=== PATIENT | female | born 1945 | race Caucasian/White ===

== ENCOUNTER 2020-01-30 13:46 | Outpatient (CLI) | payer MEDICARE, OTHER, SELFPAY ==
--- NOTE | ~2020-01-30 | XR_ITS ---
EXAMINATION: XR chest 2V DATE: 01/30/2020 15:13 INDICATION: Hypertension. Preop. TECHNIQUE: Frontal and lateral views of the chest were obtained. COMPARISON: Chest single view 12/22/2013 FINDINGS: There is mild scarring at the lung apices. No pleural effusion or pneumothorax. The heart s ize is normal. IMPRESSION: 1. Mild scarring at the lung apices. Reviewed, dictated and finalized at location B.
--- NOTE | 2020-01-30 14:46 | ECG_ITS ---
Measurements Intervals [place] Rate: 60 P: 52 W[place]: 180 QRS: -14 QRSD: 89 T: 49 QT: 426 QTc: 428 Interpretive Statements SINUS RHYTHM DELAYED PRECORDIAL R/S TRANSITION VOLTAGE CRITERIA FOR LVH BASELINE ARTIFACT- I, III, AVR, AVL, AVF BORDERLINE ECG Electronically Signed On 01-31-2020 8:40:35 CDT by Saud Maciel D.O.
[2020-01-30 15:12] LABS: Basophils Percent Auto 0.4 % (0.2-1.2); Eosinophils Percent Auto 0.4 % (0-4.4); Hematocrit 42.9 % (37.0-47.0); Hemoglobin 14.3 g/dL (12.0-15.0); Immature Granulocyte Absolute 0.01 K/mm3 (0.00-0.031); Immature Granulocyte Percent A 0.1 % (0-0.5); Lymphocytes Absolute Auto 2.02 K/mm3 (0.9-3.2); Lymphocytes Percent Auto 25.4 % (18.3-44.2); Mean Corpuscular HGB Conc 33.3 g/dl (32-36); Mean Corpuscular Hemoglobin 29.5 pg (26-34); Mean Corpuscular Volume 88.5 fl (80-100); Mean Platelet Volume 9.6 fl (7.4-10.4); Monocytes Absolute Auto 0.6 K/mm3 (0.1-0.6); Monocytes Percent Auto 7.2 % (2.6-8.5); Neutrophils Absolute Auto 5.3 K/mm3 (1.3-6.7); Neutrophils Percent Auto 66.5 % (45.5-73.1); Platelet Count Result 252 k/mm3 (150-375); Red Blood Count 4.85 M/mm3 (4.2-5.4); Red Cell Distribution Width 13.2 % (11.5-14.5)
[2020-01-30 15:21] LABS: Hemoglobin A1C 5.6 % (<5.7)
[2020-01-30 15:22] LABS: Albumin Level 4.7 g/dL (3.5-5.1); Anion Gap 12 mmol/L (8-16); Blood Urea Nitrogen 21 mg/dL (7-17); Calcium 9.5 mg/dL (8.4-10.2); Carbon Dioxide 26 mmol/L (22-30); Chloride 99 mmol/L (98-107); Estimated Glomerular Filt Rate 44; Glucose 106 mg/dL (65-105); Potassium 3.9 mmol/L (3.4-5.0); Sodium 137 mmol/L (137-145)
[2020-01-30 15:26] LABS: Urine Cotinine NEGATIVE
== END 2020-01-30 13:47 | disposition home or self-care (01) ==
LOC: ANHSURGERY 13:49
PROVIDERS: PCP Internal Medicine; Visit Provider Orthopaedic Surgery
DX: M16.11 Unilateral primary osteoarthritis, right hip (principal); R91.8 Other nonspecific abnormal finding of lung field
CPT/HCPCS: 36415; 71046; 80048; 80307; 82040; 83036; 85025; 87070; 87077; 87186; 93005

== ENCOUNTER 2020-02-07 07:59 | Outpatient (CLI) | payer MEDICARE, SELFPAY ==
[2020-02-07 08:39] LABS: Creatinine Urine 141.46 mg/dL (40-278); Total Protein Urine Random 17.1 mg/dL (0.0-11.9)
[2020-02-07 09:34] LABS: Albumin Level 3.7 g/dL (3.4-5.0); Anion Gap 12 mmol/L (8-16); Blood Urea Nitrogen 21 mg/dL (7-18); Calcium 8.6 mg/dL (8.5-10.1); Carbon Dioxide 26 mmol/L (21-32); Chloride 102 mmol/L (98-108); Estimated Glomerular Filt Rate 44; Glucose 178 mg/dL (70-99); Osmolality Calculated 297 mOsm/kg (285-295); Phosphorus 3.3 mg/dL (2.6-4.7); Potassium 3.7 mmol/L (3.5-5.1); Sodium 140 mmol/L (136-145)
[2020-02-07 09:47] LABS: Eosinophil Urine 0 % (0-0)
== END 2020-02-07 08:00 | disposition home or self-care (01) ==
LOC: CHSLAB 08:01
PROVIDERS: PCP Internal Medicine; Visit Provider Internal Medicine Nephrology
DX: R94.4 Abnormal results of kidney function studies (principal)
CPT/HCPCS: 36415; 80069; 82436; 82570; 84156; 85999

== ENCOUNTER → 2020-02-09 13:19 | Outpatient (CLI) | payer MEDICARE, OTHER, SELFPAY ==
--- NOTE | ~2020-02-09 | US_ITS ---
EXAMINATION: US renal BI DATE: 02/09/2020 13:36 INDICATION: Nonspecific abnormal results of function study of kidney. TECHNIQUE: Multiple ultrasound grayscale images of the kidneys were obtained. COMPARISON: Lumbar spine MRI 02/23/2019 FINDINGS: The right kidney measures 9.2 x 4.2 x 5.2 cm. The left kidney measures 12.7 x 4.7 x 6.1 cm. The kidne ys demonstrate normal parenchymal echogenicity. There is a 1.8 cm peripelvic cyst in left kidney. The re is no hydronephrosis. The bladder is normal. IMPRESSION: 1. Normal kidney sizes. No hydronephrosis. Reviewed, dictated and finalized at location A.
== END ==
PROVIDERS: Visit Provider Internal Medicine Nephrology
DX: R94.4 Abnormal results of kidney function studies (principal)
CPT/HCPCS: 76775

== ENCOUNTER 2020-02-10 07:55 | Outpatient (CLI) | payer MEDICARE, OTHER, SELFPAY ==
--- NOTE | ~2020-02-10 | NM_ITS ---
EXAMINATION: NM wilver stress w perfusion DATE: 02/10/2020 10:48 INDICATION: Coronary atherosclerosis. TECHNIQUE: Rest images were obtained following intravenous administration of 10.9 mCi Tc99m tetrofosm in (Myoview). The patient was infused intravenously with Lexiscan (regadenoson). Then, 32.3 mCi Tc99m tetrofosmin (Myoview) was administered intravenously, and stress images were obtained. Data was shereen nstructed into short axis and horizontal and vertical long axis SPECT images. Gated SPECT images were also obtained. COMPARISON: None. FINDINGS: There is no definite reversible or fixed perfusion abnormality to suggest ischemia or infar ction. There is no segmental wall motion abnormality. Left ventricular ejection fraction measures > 70%. IMPRESSION: 1. No definite ischemia or infarct. 2. Normal left ventricular ejection fraction measuring >70%. Reviewed, dictated and finalized at location A.
--- NOTE | 2020-02-10 08:35 | EST_ITS ---
Patient Info Name: Susi Easley Age: 74 years : 1945 Gender: Female Ht: 63 in Wt: 195 lbs BSA: 2.02 m2 Exam Date: 02/10/2020 9:29 AM Exam Location: [facility] Stress Patient Status: Outpatient Admit Date: 02/10/2020 Staff Ordering Physician: Ben Cohen MD Attending Provider: Ben Cohen MD Exercise Technologist: Melva Estrada RDCS Exercise Physician: Saud Maciel DO Exam Type: CA stress wilver w NM Study Info Indications I25.10 - Atherosclerotic heart disease of [place] coronary artery without angina pectoris Z01.810 - Encounter for preprocedural cardiovascular examination A regadenoson stress test was performed. Summary 1. 1. Negative lexiscan stress test for ischemic ST changes by ECG criteria. 2. 2. Stable hemodynamics throughout the test. 3. 3. Nuclear scan to follow and will be reported separately. Please correlate with it. 4. 4. Patient informed of the above results. Protocol: Lexiscan Stress ECG Details Stage: REST Duration (min): 8 min : 7 sec HR (bpm): 66 SBP (mmHg): 142 DBP (mmHg): 78 Stage: REST Duration (min): 13 min : 32 sec HR (bpm): 65 SBP (mmHg): 142 DBP (mmHg): 78 Stage: STAGE 1 Duration (min): 1 min : 0 sec HR (bpm): 73 SBP (mmHg): 138 DBP (mmHg): 68 Stage: RECOVERY Duration (min): 1 min : 0 sec HR (bpm): 83 SBP (mmHg): 119 DBP (mmHg): 64 Stage: RECOVERY Duration (min): 2 min : 0 sec HR (bpm): 83 SBP (mmHg): 119 DBP (mmHg): 64 Stage: RECOVERY Duration (min): 3 min : 0 sec HR (bpm): 79 SBP (mmHg): 119 DBP (mmHg): 64 Stage: RECOVERY Duration (min): 4 min : 0 sec HR (bpm): 81 SBP (mmHg): 119 DBP (mmHg): 64 Stage: RECOVERY Duration (min): 5 min : 0 sec HR (bpm): 84 SBP (mmHg): 114 DBP (mmHg): 65 Stage: RECOVERY Duration (min): 6 min : 0 sec HR (bpm): 81 SBP (mmHg): 114 DBP (mmHg): 65 Stage: RECOVERY Duration (min): 6 min : 40 sec HR (bpm): 79 SBP (mmHg): 131 DBP (mmHg): 68 Rest HR: 65 bpm Peak HR: 85 bpm Rest Sys BP: 142 mmHg Peak Sys BP: 138 mmHg Max Pred HR: 145 bpm % Max Pred HR: 59 % Target HR: 123 bpm Max RPP: 11,730 bpm*mmHg Termination Reason: Completed protocol Cardiac Symptoms: Shortness of breath Total Time: 1 min : 0 sec Rest Bender BP: 78 mmHg Peak Bender BP: 68 mmHg Total Dose: 0.4 mg Resting ECG Sinus rhythm. Stress ECG No ST changes. Arrhythmias None. Report Signatures
== END 2020-02-10 07:56 | disposition home or self-care (01) ==
PROVIDERS: PCP Internal Medicine; Visit Provider Internal Medicine
DX: I25.10 Atherosclerotic heart disease of native coronary artery without angina pectoris (principal); Z01.810 Encounter for preprocedural cardiovascular examination
CPT/HCPCS: 78452; 93017; A9502; J2785

== ENCOUNTER 2020-02-13 00:58 | Outpatient (CLI) | payer MEDICARE, OTHER, SELFPAY ==
[2020-02-13 19:34] LABS: SARS-CoV-2 RNA PCR Negative
== END 2020-02-13 00:59 | disposition home or self-care (01) ==
LOC: ANHCOVIDDT 00:58
PROVIDERS: PCP Internal Medicine; Visit Provider Orthopaedic Surgery
DX: Z01.812 Encounter for preprocedural laboratory examination (principal); Z20.828 Contact with and (suspected) exposure to other viral communicable diseases
CPT/HCPCS: 87635; C9803; U0003

== ENCOUNTER 2020-02-15 02:14 | Day surgery (SDC) | payer MEDICARE, OTHER, SELFPAY ==
[2020-01-30 14:32] VITALS: BMI 35.2
[2020-01-30 14:48] VITALS: BP 134/71; PULSE 68; RESP 16; TEMP 36.6; O2SAT 98
--- NOTE | 2020-02-10 12:42 | PC.NURSE ---
PT STATES NO CHANGE IN HEALTH HX SINCE LAST INTERVIEW ON 01/30/20
--- NOTE | 2020-02-13 14:25 | PM.IMHP ---
H&P: HPI History of Present Illness Date/Time: 02/13/20 14:25 <JEANNINE Yang - Last Filed: 02/13/20 14:45> Chief complaint: severe OA right hip <JEANNINE Yang - Last Filed: 02/13/20 14:45> Narrative: Susi Easley is a 74 year old female , presents today for our anterior right total hip arthroplasty. She has been having pain and progressively worsening in this right hip over the course of last year point she is at a point where she has severe arthritis in the hip with mild flattening of the femoral head. She has recently been taken off anti-inflammatories due to kidney issues and therefore her pain is even worse. She is at a point now where she is using a walker full-time is still experiencing rather severe pain in the right groin and anterior lateral hip. She feels she has reached a point straight proceed with total hip arthroplasty with a continued nonsurgical treatment. <JEANNINE Yang - Last Filed: 02/13/20 14:45> Review of Systems ENT: Reports system reviewed and no additional complaints, except as documented <JEANNINE Yang - Last Filed: 02/13/20 14:45> Cardiovascular: Cardiovascular: Reports no additional cardiovascular complaints <JEANNINE Yang - Last Filed: 02/13/20 14:45> Respiratory: Respiratory: Reports no additional respiratory complaints <JEANNINE Yang - Last Filed: 02/13/20 14:45> [facility] Past Medical History Medical History: Medical History Hypertension Hypothyroidism, unspecified Metabolic syndrome Mixed hyperlipidemia <JEANNINE Yang - Last Filed: 02/13/20 14:45> Family History Family History: Family History Mother Hypertension Carcinoma of colon Other Family history of arthritis <JEANNINE Yang - Last Filed: 02/13/20 14:45> Social History Social History: Social History Smoking status: Never smoker Second hand tobacco smoke exposure: No Additional smoking assessment comments: DENIES ANY FORM OF TOBACCO USE Alcohol intake: current Drinks per week: 1 Alcohol use details: WINE Substance use: never Living arrangements: with family Spiritual care concerns: No <JEANNINE Yang - Last Filed: 02/13/20 14:45> Meds Home Medications and Allergies Home medications: Home Medications Medication Instructions Recorded Confirmed Type hydrochlorothiazide 25 mg tablet 25 mg PO DAILY 90 Days #90 tablet 08/01/19 02/15/20 Rx meloxicam 7.5 mg tablet 7.5 mg PO DAILY 90 Days #90 tablet 08/01/19 02/15/20 Rx metoprolol tartrate 100 mg tablet 100 mg PO DAILY 90 Days #90 tablet 08/01/19 02/15/20 Rx pregabalin 75 mg capsule 75 mg PO BID 90 Days #180 cap 08/01/19 02/15/20 Rx rosuvastatin 20 mg tablet 20 mg PO DAILY #90 tablet 09/07/19 02/15/20 Rx levothyroxine 75 mcg tablet 75 mcg PO DAILY 90 Days #90 tablet 10/24/19 02/15/20 Rx aspirin [Adult Low Dose Aspirin] 81 mg PO DAILY 01/30/20 02/15/20 History zolpidem 10 mg PO HS PRN 01/30/20 02/15/20 History <JEANNINE Yang - Last Filed: 02/13/20 14:45> Allergies/Adverse reactions: Allergies Allergy/AdvReac Type Severity Reaction Status Date / Time Penicillins Allergy Intermediate Swelling Verified 02/15/20 11:08 albuterol Allergy Mild palpatation Verified 02/15/20 11:08 s <JEANNINE Yang - Last Filed: 02/13/20 14:45> Exam Narrative: Exam Narrative: 74-year-old female very alert pleasant no distress. She walks with a [id number] limp relative to pain in the right hip. She is walking with a walker. She is 5 ft 3 and 200 lb. She has severe pain with extension of the hip on the right which is felt in the groin. Flexion right hip is 9?, she has no rotation of the hip. Any attempted rotation causes her severe groin pain, she has moderate groin josh
[2020-02-15] VITALS (10 sets, daily range): BP systolic 104–140; BP diastolic 56–92; PULSE 59–90; RESP 10–20; TEMP 35.7–36.7; O2SAT 20–100
--- NOTE | ~2020-02-15 | XR_ITS ---
EXAMINATION: XR surgery orthopedic DATE: 02/15/2020 15:49 INDICATION: Right hip arthroplasty TECHNIQUE: Single fluoroscopic AP view of the right hip. 66 seconds of fluoroscopy. FINDINGS: There is a right total hip arthroplasty in expected position. Subcutaneous gas with soft t issue swelling are consistent with recent surgery. IMPRESSION: 1. Recent right total hip arthroplasty. Reviewed, dictated and finalized at location A.
--- NOTE | ~2020-02-15 | XR_ITS ---
EXAMINATION: XR hip RT 1V w AP pelvis DATE: 02/15/2020 16:16 INDICATION: Right total hip arthroplasty TECHNIQUE: 2 views right hip FINDINGS: There is a right total hip arthroplasty in expected position. Subcutaneous gas with soft t issue swelling are consistent with recent surgery. IMPRESSION: 1. Recent right total hip arthroplasty. Reviewed, dictated and finalized at location A.
[2020-02-15] MEDS: LACTATED RINGERS 1,000 ML 30 ML IV CONT ×2 (10:30→16:16)
[2020-02-15] MEDS: KETOROLAC 15 MG/ML VIAL (*BKC) IV PUSH (10:40)
[2020-02-15] MEDS: ACETAMINOPHEN 500 MG TABLET 1000 MG PO ×2 (10:40→18:12)
[2020-02-15] MEDS: TRANEXAMIC ACID 1,000MG/ISO100 1,000 MG/100 ML BAG 200 MG IVPB (11:18)
--- NOTE | 2020-02-15 11:36 | WPDANESEPPF ---
Anes - Initial Pre Proc Eval Procedure: Operation Date: 02/15/20 12:00 Proposed Procedures p Right Total Hip Arthroplasty, Anterior Approach - Eliud Adams MD Date/Time: 02/15/20 11:36 Surgeon: Eliud Adams MD Pre Op Diagnosis: severe OA right hip Patient Data Age: 74 Gender: F Height: 5 ft 3 in Weight: 82 kg Last Vital Signs Temp 36.7 C 02/15/20 10:26 Pulse 90 02/15/20 10:26 Resp 20 02/15/20 10:26 BP 104/69 02/15/20 10:26 Pulse Ox 100 02/15/20 10:26 Allergies Allergy/AdvReac Type Severity Reaction Status Date / Time Penicillins Allergy Intermediate Swelling Verified 02/15/20 11:08 albuterol Allergy Mild palpatation Verified 02/15/20 11:08 s Home Medications Medication Instructions Recorded Confirmed Type hydrochlorothiazide 25 mg tablet 25 mg PO DAILY 90 Days #90 tablet 08/01/19 02/15/20 Rx meloxicam 7.5 mg tablet 7.5 mg PO DAILY 90 Days #90 tablet 08/01/19 02/15/20 Rx metoprolol tartrate 100 mg tablet 100 mg PO DAILY 90 Days #90 tablet 08/01/19 02/15/20 Rx pregabalin 75 mg capsule 75 mg PO BID 90 Days #180 cap 08/01/19 02/15/20 Rx rosuvastatin 20 mg tablet 20 mg PO DAILY #90 tablet 09/07/19 02/15/20 Rx levothyroxine 75 mcg tablet 75 mcg PO DAILY 90 Days #90 tablet 10/24/19 02/15/20 Rx aspirin [Adult Low Dose Aspirin] 81 mg PO DAILY 01/30/20 02/15/20 History zolpidem 10 mg PO HS PRN 01/30/20 02/15/20 History Patient hx anesthesia problems: none Family hx anesthesia problems: none PMFSH Past Medical History Medical History Hypertension Hypothyroidism, unspecified Metabolic syndrome Mixed hyperlipidemia Family History Family History Mother Hypertension Carcinoma of colon Other Family history of arthritis Social History Social History Smoking status: Never smoker Second hand tobacco smoke exposure: No Additional smoking assessment comments: DENIES ANY FORM OF TOBACCO USE Alcohol intake: current Drinks per week: 1 Alcohol use details: WINE Substance use: never Living arrangements: with family Spiritual care concerns: No Anes - Eval Final PreProcedure Day of Procedure 02/15/20 11:36 Patient weight: obese Heart: regular rate and rhythm Lungs: clear to auscultation Airway: Mallampati scale class II Neurological: alert and oriented Last oral intake: >/= 8 hours ASA classification: III Emergent: no Anesthetic plan: proceed Anesthesia type and monitoring: general ETT and standard monitoring Informed Consent: The patient's anesthetic plan and its attendant risks and benefits were discussed with the patient/family/POA. Questions were solicited and answers provided to the satisfaction of the patient/family/POA.
--- NOTE | 2020-02-15 11:52 | WPDHPUPDATE1 ---
History and Physical Update Update Date/Time: 02/15/20 11:52 History and Physical has been reviewed, including an updated exam of the patient. There are NO changes in the patient's condition. Risks, benefits, and alternatives have been discussed and questions answered. Patient agrees to proceed with procedure. Patient had blood work Thursday and has been cleared by dr Langley to proceed from renal standpoint
[2020-02-15] MEDS: ceFAZolin 2 GM/D5W 50 ML 2 GM/50 ML BAG IVPB (12:09)
[2020-02-15] MEDS: ceFAZolin SODIUM 1 GM VIAL 3 GM IRRIGATION (12:50)
[2020-02-15] MEDS: ceFAZolin SODIUM 1 GM VIAL IV PUSH (15:49)
[2020-02-15] MEDS: TRANEXAMIC ACID 1,000 MG/10 ML AMPUL 1000 MG IV PUSH (15:50)
--- NOTE | 2020-02-15 15:54 | P.OP_ITS ---
Procedure Note - Detailed Date of procedure: 02/15/20 Pre-op diagnosis: severe OA right hip Severe osteoarthritis right hip Post-op diagnosis: same Procedure performed: direct anterior approach right total hip arthroplasty Implants: Depue Actis stem and cup Anesthesia: GETA Surgeon: Eliud Adams MD Water Gas Operator: lorena Estimated blood loss (mL): 450 Urine output (mL): 200 Drains: Yes Packing: No Pathology: none sent Complications: No immediate complications Condition: stable Disposition: PACU Findings: 200 alan saver returned.
[2020-02-15] MEDS: SENNA/DOCUSATE SODIUM TABLET 2 TAB PO (18:12)
[2020-02-15] MEDS: PREGABALIN 75 MG CAPSULE PO (18:12)
[2020-02-16] VITALS: BP 116/50; PULSE 96; RESP 20; TEMP 36.4; O2SAT 66
[2020-02-16] MEDS: ACETAMINOPHEN 500 MG TABLET 1000 MG PO ×3 (00:10→11:17)
[2020-02-16 04:43] VITALS: BP 115/65; PULSE 67; RESP 18; TEMP 37.1; O2SAT 96
[2020-02-16] MEDS: LEVOTHYROXINE SODIUM 75 MCG TABLET PO (05:50)
--- NOTE | 2020-02-16 06:00 | PC.NURSE ---
Per orders hemovac drain removed at this time. In tact. Patient tolerated well.
[2020-02-16 06:01] LABS: Basophils Percent Auto 0.1 % (0.2-1.2); Hematocrit 30.2 % (37.0-47.0); Hemoglobin 10.7 g/dL (12.0-15.0); Immature Granulocyte Absolute 0.11 K/mm3 (0.00-0.031); Immature Granulocyte Percent A 0.6 % (0-0.5); Lymphocytes Absolute Auto 1.24 K/mm3 (0.9-3.2); Lymphocytes Percent Auto 6.6 % (18.3-44.2); Mean Corpuscular HGB Conc 35.4 g/dl (32-36); Mean Corpuscular Hemoglobin 30.3 pg (26-34); Mean Corpuscular Volume 85.6 fl (80-100); Mean Platelet Volume 10.1 fl (7.4-10.4); Monocytes Percent Auto 5.5 % (2.6-8.5); Neutrophils Absolute Auto 16.3 K/mm3 (1.3-6.7); Neutrophils Percent Auto 87.2 % (45.5-73.1); Platelet Count Result 221 k/mm3 (150-375); Red Blood Count 3.53 M/mm3 (4.2-5.4); Red Cell Distribution Width 12.7 % (11.5-14.5); White Blood Count 18.7 K/mm3 (4.5-10.0)
[2020-02-16 06:12] LABS: Anion Gap 10 mmol/L (8-16); Blood Urea Nitrogen 22 mg/dL (7-17); Calcium 8.5 mg/dL (8.4-10.2); Carbon Dioxide 28 mmol/L (22-30); Chloride 91 mmol/L (98-107); Estimated CRCL calculation 44 ml/min; Estimated Glomerular Filt Rate 54; Glucose 121 mg/dL (65-105); Potassium 3.1 mmol/L (3.4-5.0); Sodium 129 mmol/L (137-145)
--- NOTE | 2020-02-16 07:07 | PM.PNORT ---
Progress Note: A&P Additional Plan POD 1 alert avss labs-noted, Cr-1.00 pt was up to chair last night, overall pain is min, wd-dry, drain is out. pt feeling good,plan to have her work with PT today then send home after abx are finished Subjective Subjective Date/Time Seen: 02/16/20 07:07 Objective Data Vital Signs Vital Signs: Vital Signs - 24 hr 02/15/20 10:26 02/15/20 16:16 02/15/20 16:30 Temperature 36.7 C 36.4 C L Pulse Rate 90 78 66 Respiratory Rate 20 10 L 16 Blood Pressure 104/69 116/92 H 135/70 Pulse Oximetry 100 100 100 02/15/20 16:45 02/15/20 17:00 02/15/20 17:20 Temperature 35.8 C L Pulse Rate 62 60 59 L Respiratory Rate 13 14 16 Blood Pressure 132/56 L 127/56 L 140/75 Pulse Oximetry 100 100 100 02/15/20 17:35 02/15/20 18:05 02/15/20 19:05 Temperature 35.9 C L 36.1 C L 35.8 C L Pulse Rate 60 64 84 Respiratory Rate 18 18 18 Blood Pressure 135/62 129/73 112/70 Pulse Oximetry 98 95 20 L 02/15/20 20:00 02/16/20 00:00 02/16/20 04:43 Temperature 35.7 C L 36.4 C L 37.1 C Pulse Rate 83 96 67 Respiratory Rate 20 20 18 Blood Pressure 120/65 116/50 L 115/65 Pulse Oximetry 100 66 L 96 Intake/Output Intake/Output: Intake & Output 02/13/20 02/14/20 02/15/20 02/16/20 23:59 23:59 23:59 23:59 Intake Total 690 700 Output Total 200 Balance 490 700 Meds/Results Medications: Active Medications Generic Name Dose Route Start Last Admin Trade Name Moisesq PRN Reason Stop Dose Admin Acetaminophen 1,000 mg 02/15/20 18:00 02/16/20 05:50 Tylenol Tablet PO 1,000 mg Q6HR JUVE Administration Apixaban 2.5 mg 02/16/20 09:00 Eliquis PO 03/21/20 21:01 Q12HR JUVE Vancomycin HCl 1,000 mg in 250 mls @ 250 mls/hr 02/15/20 23:00 02/16/20 00:06 Vancomycin 1,000 Mg/D5w 250 Ml IVPB 02/16/20 11:59 Infused Q12H JUVE Infusion Cefazolin Sodium 1 gm in 50 mls @ 100 mls/hr 02/15/20 20:00 02/16/20 05:12 Ancef 1 Gm/D5w 50 Ml Pm IVPB 02/16/20 12:29 Infused Q8H JUVE Infusion Levothyroxine Sodium 75 mcg 02/16/20 06:30 02/16/20 05:50 Synthroid PO 75 mcg DAILY@0630 JUVE Administration Magnesium Hydroxide 30 ml 02/15/20 16:13 Milk Of Magnesia PO BID PRN Constipation Metoprolol Tartrate 100 mg 02/16/20 09:00 Lopressor PO DAILY JUVE Naloxone HCl 0.1 mg 02/15/20 16:13 Narcan IV PUSH Q2M PRN Opiate Reversal Ondansetron HCl 4 mg 02/15/20 11:37 Zofran Inj IV PUSH ONCE PRN Nausea Oxycodone HCl 5 mg 02/15/20 16:13 Roxicodone Ir Tablet PO Q4H PRN Pain Rated 7-10 Oxycodone HCl 5 mg 02/15/20 21:00 02/16/20 04:40 Roxicodone Ir Tablet PO 5 mg Q4HR [facility] Administration Polyethylene Glycol 17 gm 02/16/20 09:00 Miralax PO QAM JUVE Pregabalin 75 mg 02/15/20 17:11 02/15/20 18:12 Lyrica PO 75 mg BID JUVE Administration Rosuvastatin Calcium 20 mg 02/16/20 09:00 Crestor PO DAILY JUVE Senna/Docusate Sodium 2 tab 02/15/20 17:00 02/15/20 18:12 Senokot S Tablet PO 2 tab BID JUVE Administration Radiology Results: ITS Impressions Intraoperative X-Ray 02/15/20 15:53 IMPRESSION: 1. Recent right total hip arthroplasty. Hip/Pelvis X-Ray 02/15/20 16:18 IMPRESSION: 1. Recent right total hip arthroplasty. Labs Labs: Laboratory Results - last 24 hr 02/15/20 02/15/20 02/16/20 10:21 17:23 05:44 WBC 18.7 H RBC 3.53 L Hgb 12.0 10.7 L Hct 35.0 L 30.2 L MCV 85.6 MCH 30.3 MCHC 35.4 RDW 12.7 Plt Count 221 MPV 10.1 Immature Gran % (Auto) 0.6 H Neut % (Auto) 87.2 H Lymph % (Auto) 6.6 L [place] % (Auto) 5.5 Eos % (Auto) 0.0 Baso % (Auto) 0.1 L Lymph # (Auto) 1.24 [place] # (Auto) 1.0 H Eos # (Auto) 0.0 Baso # (Auto) 0.0 Abs Immat Gran (auto) 0.11 H Absolute Neuts (auto) 16.3 H Absolute Nucleated RBC 0.0 Nucleated RBC % 0.0 Sodium Potassium
--- NOTE | 2020-02-16 07:08 | PM.DS ---
DS: Admitting Diagnosis Admitting Diagnosis Admitting Diagnosis: severe OA right hip DS: Summary Time Spent with Patient Time attestation: Patient is a 74-year-old female who underwent right total hip arthroplasty about a year on 02-14. Underwent procedure without any complications. Postoperatively she has been afebrile and vital signs have been stable. She is weight-bearing as tolerated with a walker for the 1st month. Incision is dry, neurovascularly she is intact. postop day 1 hemoglobin was 10.7, creatinine had normalized to 1.00. Her pain is well control with scheduled Tylenol well oxycodone for pain. She will start a 5 week course of Eliquis. Therapy will work with the patient today make sure that she is stable and we will plan to discharge home on 02/14. Home regular diet. Patient is advised to keep leg elevated and swelling to the leg. She may shower. Patient was advised the questions or concerns She should call the office, otherwise we will see her at her follow-up appointments. DS: Data Data Completed and Pending Labs on day of discharge: Labs from last 24 hours 02/16/20 02/16/20 02/15/20 05:44 05:44 17:23 WBC 18.7 H RBC 3.53 L Hgb 10.7 L 12.0 Hct 30.2 L 35.0 L MCV 85.6 MCH 30.3 MCHC 35.4 RDW 12.7 Plt Count 221 MPV 10.1 Immature Gran % (Auto) 0.6 H Neut % (Auto) 87.2 H Lymph % (Auto) 6.6 L [place] % (Auto) 5.5 Eos % (Auto) 0.0 Baso % (Auto) 0.1 L Lymph # (Auto) 1.24 [place] # (Auto) 1.0 H Eos # (Auto) 0.0 Baso # (Auto) 0.0 Abs Immat Gran (auto) 0.11 H Absolute Neuts (auto) 16.3 H Absolute Nucleated RBC 0.0 Nucleated RBC % 0.0 Sodium 129 L Potassium 3.1 L Chloride 91 L Carbon Dioxide 28 Anion Gap 10 BUN 22 H Creatinine 1.00 Estim Creat Clear Calc 44 Estimated GFR 54 L Glucose 121 H Calcium 8.5 Blood Type Antibody Screen 02/15/20 10:21 WBC RBC Hgb Hct MCV MCH MCHC RDW Plt Count MPV Immature Gran % (Auto) Neut % (Auto) Lymph % (Auto) [place] % (Auto) Eos % (Auto) Baso % (Auto) Lymph # (Auto) [place] # (Auto) Eos # (Auto) Baso # (Auto) Abs Immat Gran (auto) Absolute Neuts (auto) Absolute Nucleated RBC Nucleated RBC % Sodium Potassium Chloride Carbon Dioxide Anion Gap BUN Creatinine Estim Creat Clear Calc Estimated GFR Glucose Calcium Blood Type B Positive Antibody Screen Negative Discharge Plan Discharge Patient Disposition: Home, Self-Care Patient Instructions: Apixaban (By mouth), Pain Management (DC), IVAN Hose (DC), Joint Replacement Surgery (DC), Total Hip Replacement (DC) Discharge Medications: No Action hydrochlorothiazide 25 mg tablet 25 mg PO DAILY 90 Days Qty: 90 RF: 1 meloxicam 7.5 mg tablet 7.5 mg PO DAILY 90 Days Qty: 90 RF: 1 metoprolol tartrate 100 mg tablet 100 mg PO DAILY 90 Days Qty: 90 RF: 1 pregabalin 75 mg capsule 75 mg PO BID 90 Days Qty: 180 RF: 1 levothyroxine 75 mcg tablet 75 mcg PO DAILY 90 Days Qty: 90 RF: 1 aspirin [Adult Low Dose Aspirin] 81 mg Tablet,Delayed Release (Dr/Ec) 81 mg PO DAILY RF: 0 zolpidem 10 mg tablet 10 mg PO HS PRN (Reason: sleep) RF: 0 rosuvastatin 20 mg tablet 20 mg PO DAILY Qty: 90 RF: 0
--- NOTE | 2020-02-16 07:45 | WPDANESPN ---
Anes - Prog Note Post-Op Date/Time: 02/16/20 07:45 Cardiovascular status: normal Respiratory status: normal Airway patency: baseline Mental status: baseline Post-Op hydration status: normal Vital Signs: Last Vital Signs Temp 37.1 C 02/16/20 04:43 Pulse 67 02/16/20 04:43 Resp 18 02/16/20 04:43 BP 115/65 02/16/20 04:43 Pulse Ox 96 02/16/20 04:43 Pain Score (VAS): 0/10. Patient resting in bed at time of assessment, appears comfortable. No additional issues or concerns addressed at time of assessment. I/O: Intake & Output 02/15/20 02/15/20 02/16/20 15:59 23:59 07:59 Intake Total 300 390 700 Output Total 200 Balance 100 390 700 Laboratory Tests 02/16/20 05:44 02/16/20 05:44 02/15/20 02/15/20 02/16/20 10:21 17:23 05:44 WBC 18.7 H RBC 3.53 L Hgb 12.0 10.7 L Hct 35.0 L 30.2 L MCV 85.6 MCH 30.3 MCHC 35.4 RDW 12.7 Plt Count 221 MPV 10.1 Immature Gran % (Auto) 0.6 H Neut % (Auto) 87.2 H Lymph % (Auto) 6.6 L [place] % (Auto) 5.5 Eos % (Auto) 0.0 Baso % (Auto) 0.1 L Lymph # (Auto) 1.24 [place] # (Auto) 1.0 H Eos # (Auto) 0.0 Baso # (Auto) 0.0 Abs Immat Gran (auto) 0.11 H Absolute Neuts (auto) 16.3 H Absolute Nucleated RBC 0.0 Nucleated RBC % 0.0 Sodium Potassium Chloride Carbon Dioxide Anion Gap BUN Creatinine Estim Creat Clear Calc Estimated GFR Glucose Calcium Blood Type B Positive Antibody Screen Negative 02/16/20 05:44 WBC RBC Hgb Hct MCV MCH MCHC RDW Plt Count MPV Immature Gran % (Auto) Neut % (Auto) Lymph % (Auto) [place] % (Auto) Eos % (Auto) Baso % (Auto) Lymph # (Auto) [place] # (Auto) Eos # (Auto) Baso # (Auto) Abs Immat Gran (auto) Absolute Neuts (auto) Absolute Nucleated RBC Nucleated RBC % Sodium 129 L Potassium 3.1 L Chloride 91 L Carbon Dioxide 28 Anion Gap 10 BUN 22 H Creatinine 1.00 Estim Creat Clear Calc 44 Estimated GFR 54 L Glucose 121 H Calcium 8.5 Blood Type Antibody Screen Post-procedural complaints: none Patient Feedback: Patient satisfied with anesthetic care.
[2020-02-16 08:12] VITALS: PULSE 80
[2020-02-16] MEDS: METOPROLOL TARTRATE 50 MG TAB 100 MG PO (08:12)
[2020-02-16] MEDS: ROSUVASTATIN 10 MG TABLET 20 MG PO (08:12)
[2020-02-16] MEDS: SENNA/DOCUSATE SODIUM TABLET 2 TAB PO (08:13)
[2020-02-16] MEDS: PREGABALIN 75 MG CAPSULE PO (08:13)
[2020-02-16] MEDS: POTASSIUM CHLORIDE 20 MEQ TABLET 60 MEQ PO (08:13)
[2020-02-16] MEDS: APIXABAN 2.5 MG TABLET PO (08:13)
[2020-02-16] MEDS: polyethylene glycoL 3350 17 GM POWD.PACK PO (08:13)
[2020-02-16 09:15] VITALS: BP 102/57; PULSE 69; RESP 18; TEMP 36.5; O2SAT 96
[2020-02-16 09:25] VITALS: O2SAT 96
--- NOTE | 2020-02-16 09:25 | PM.IMCN ---
Assessment and Plan Assessment and plan (1) Osteoarthritis: Code(s): M19.90 - Unspecified osteoarthritis, unspecified site Status: Acute Assessment and Plan: Right hip; status post Right total hip arthroplasty per Dr. Adams; POD1. Patient doing well postoperatively. Plan is for discharge today per Ortho note. Post op care, pain management, PT/OT, DVT ppx per primary service Monitor Okay for discharge from Medical standpoint (2) Hypertension: Code(s): I10 - Essential (primary) hypertension Status: Acute Assessment and Plan: BP a bit soft today, although patient asymptomatic. Okay with resuming HCTZ tomorrow. We discussed having her check her BP daily for the next several days, as well as, holding HCTZ if BP too soft or if she is symptomatic Resume HCTZ as above Monitor BP daily for next several days F/u with PCP if issues with BP (3) Insomnia, unspecified: Code(s): G47.00 - Insomnia, unspecified Status: Acute Assessment and Plan: Home medication held per primary service given narcotics prescribed Resume med once okay with primary service (4) Hypothyroidism, unspecified: Code(s): E03.9 - Hypothyroidism, unspecified Status: Acute Assessment and Plan: Continue home levothyroxine F/u with PCP (5) Mixed hyperlipidemia: Code(s): E78.2 - Mixed hyperlipidemia Status: Acute Assessment and Plan: Continue home statin (6) Hypokalemia: Code(s): E87.6 - Hypokalemia Status: Acute Assessment and Plan: Suspect 2/2 decreased PO intake perioperatively; 3.1 today and replaced this morning. Suspect improvement with improved PO intake F/u with PCP as needed Additional Plan Thank you for allowing the Hospitalist team to care for this patient during their stay. We will continue to follow with you. Please call with any questions. Okay for discharge form Hospitalist standpoint Collaborative physician for this Hospitalist Consult H&P is Dr. Hidalgo DOS 02/16/20 at roughly 9:15 am HPI Data of Consult Consult date: 02/16/20 Requesting Physician: Eliud Adams MD Primary Care Provider: Ben Cohen Jr., MD Consult Narrative Narrative: Susi Easley is a 74 year old female with history of hypertension, hypothyroidism, mixed HLD, and severe osteoarthritis of right hip who presented to the hospital on 02/14 for elective right total hip arthroplasty; POD1 per Dr. Adams; hospitalist service has been consulted for medical management of comorbid conditions. Patient states that she has had long standing OA of right hip for some time now, which was medically managed fairly well until early December when she noted that her pain had become quite severe (10/10 pain at its worse) and was not controlled with conservative medical management. She states she discussed different options with Dr. Adams including elective right total hip arthroplasty and decided to proceed with the procedure on 02/14; patient thinks she tolerated procedure well. She is doing well with PT/OT and is eager to be discharged today. Notes her pain is reasonably controlled with 2/10 pain while resting and 7/10 pain with PT/OT, but manageable. She notes a slight chronic dry cough. She has no other complaints. Denies f/c/s, dizziness, lightheadedness (particularly with ambulation), changes in v/h, cp/palpitations, sob, n/v/d/c, abd pain, changes in BMs, dysuria, hematuria, cloudy urine, calf pain Review of Systems Review of Systems: All systems reviewed & are unremarkable except as noted in HPI and below PMFSH Past Medical History Medical History Hypertension Hypothyroidism, unspeci
== END 2020-02-16 15:40 | disposition home or self-care (01) ==
LOC: ANHSURGERY 09:51 → ANH2MED 17:16
PROVIDERS: PCP Internal Medicine; Visit Provider Orthopaedic Surgery
PROC: (CPT 27130; principal; 2020-02-15 12:00)
DX: M16.11 Unilateral primary osteoarthritis, right hip (principal); I10 Essential (primary) hypertension; E03.9 Hypothyroidism, unspecified; E78.2 Mixed hyperlipidemia; E87.6 Hypokalemia; G47.00 Insomnia, unspecified
CPT/HCPCS: 27130; 36415; 73501; 80048; 85014; 85018; 85025; 86850; 86900; 86901; 97110; 97116; 97161; 97165; A9270; C1776; J0171; J0690; J1100; J1170; J1885; J2250; J2270; J2405; J2704; J2795; J3010; J3370; J7120

== ENCOUNTER 2020-03-31 10:13 | Emergency (ER) | payer MEDICARE, OTHER, SELFPAY ==
[2020-03-31 10:25] VITALS: BP 135/87; PULSE 62; RESP 20; TEMP 36.4; O2SAT 99
--- NOTE | 2020-03-31 10:25 | ED.EAR ---
HPI - Ear Problem General Chief complaint: Ear Stated complaint: ear pain Time Seen by Provider: 03/31/20 10:25 Source: patient and RN notes reviewed History of Present Illness HPI Narrative: Patient is a 75-year-old female who presents the urgent care with complaints of bilateral ear pain. Patient states that it started in the left ear and is now radiating to the right. Patient states she has had some drainage from the left ear as well as picking off scabs . Patient states she has had issues with the right ear in the past with chronic ear infections and does believe she still has a tube in the ear. Patient denies of any fever, nausea, vomiting. Patient states that she has been using Flonase and Tylenol for pain relief. No other acute complaints. No acute distress noted. Patient aware of the plan of care. Some parts of this dictation were generated by voice recognition software and may contain typographical and/or grammatical inaccuracies. Related Data Home Medications Medication Instructions Recorded Confirmed zolpidem 10 mg PO HS PRN 01/30/20 03/31/20 Allergies Allergy/AdvReac Type Severity Reaction Status Date / Time Penicillins Allergy Intermediate Swelling Verified 03/06/20 15:02 albuterol Allergy Mild palpatation Verified 03/06/20 15:02 s Review of Systems Review of Systems: Narrative: CONSTITUTIONAL: Denies fever, chills, or sweats. EYES: Denies visual changes, redness, or discharge. ENT: Reports of bilateral ear pain with left ear drainage and scabbing CARDIOVASCULAR: Denies chest pain, palpitations, or edema. RESPIRATORY: Denies cough or dyspnea. GASTROINTESTINAL: Denies abdominal pain, nausea, vomiting, or diarrhea. GENITOURINARY: Denies dysuria or hematuria. SKIN: Denies rash or itching. MUSCULOSKELETAL: Denies back pain, joint pain, or myalgia. NEUROLOGIC: Denies headache, numbness, or weakness. All other systems reviewed are negative, except as documented in HPI. [facility] Past Medical History Medical History (Updated 03/31/20 @ 10:52 by RAMON Carrillo) Hypertension Hypothyroidism, unspecified Insomnia, unspecified Metabolic syndrome Mixed hyperlipidemia Osteoarthritis Surgical History Surgical History (Updated 03/06/20 @ 15:06 by Ben Cohen Jr., MD) Status post THR (total hip replacement) c/o Dr. Eliud Adams on February 15, 2020 Family History Family History Mother Hypertension Carcinoma of colon Other Family history of arthritis Social History Social History (Updated 02/16/20 @ 09:32 by Fran Hdez PA-C) Social History: Patient is listed as a Full Code. Her PCP is Dr. Cohen. Smoking status: Never smoker Second hand tobacco smoke exposure: No Additional smoking assessment comments: DENIES ANY FORM OF TOBACCO USE Alcohol intake: current Drinks per week: 1 Substance use: never Substance use type: does not use Gender identity (if verbalized by the patient): Female Spiritual care concerns: No Comments At the time of my signature, I reviewed and agree with the nursing past medical, surgical, social, and family history. There is no relevant family history pertinent to the patient complaint. Exam Narrative: Exam Narrative: GENERAL: This is a well-nourished, well-developed patient, in no apparent distress. HEAD: normocephalic, atraumatic. EYES: PERRL. Sclera clear/white. Vision is grossly intact. EARS: External ears normal, moderate edema and scant yellow drainage from the left auditory canal with surrounding erythema, mild edema noted to right auditory canal without drainage, right tube in place without any rupture or perforation, bilateral TMs normal without perforation. Hearing grossly intact. NOSE: External nose normal with no obvious nasal discharge, nares without redness, no rhinorrhea. THROAT: Mucous membranes moist, posterior pharynx clear. NECK: Neck supple, non-tender w
== END 2020-03-31 10:57 | disposition home or self-care (01) ==
PROVIDERS: Emergency Provider Nurse Practitioner Family; PCP Internal Medicine
DX: H60.503 Unspecified acute noninfective otitis externa, bilateral (principal); H60.12 Cellulitis of left external ear; I10 Essential (primary) hypertension; E03.9 Hypothyroidism, unspecified; E78.2 Mixed hyperlipidemia; M19.90 Unspecified osteoarthritis, unspecified site; E88.81 Metabolic syndrome and other insulin resistance
CPT/HCPCS: 99213; G0463

== ENCOUNTER 2020-07-02 11:54 | Emergency (ER) | payer MEDICARE, OTHER, SELFPAY ==
[2020-07-02 12:08] VITALS: BP 146/87; PULSE 100; RESP 18; TEMP 36.6; O2SAT 97
--- NOTE | 2020-07-02 12:11 | ED.EAR ---
HPI - Ear Problem General Chief complaint: Ear Stated complaint: ear pain Time Seen by Provider: 07/02/20 12:17 Source: patient and RN notes reviewed Mode of arrival: ambulatory Limitations: no limitations History of Present Illness HPI Narrative: 75-year-old female presents with concern for right ear pain. Reports chronic right ear infections. Reports 3 years ago her eardrum ruptured after an airplane flight and since then she has had continuous problems with her right ear. Reports she last saw her ear nose and throat doctor in April. Reports she has been on clindamycin for a tooth infection, and is taken her last day today. Reports ear pain for approximately 4 to 5 days, denies drainage. Reports using a warm washcloth on the ear for comfort. She denies rhinorrhea, nasal congestion, sore throat, fever. Reports decreased hearing. MD Complaint: ear pain Related Data Home Medications Medication Instructions Recorded Confirmed aspirin 81 mg tablet,delayed 81 mg PO DAILY 05/03/20 07/02/20 release meloxicam 75 mg PO DAILY 07/02/20 07/02/20 Allergies Allergy/AdvReac Type Severity Reaction Status Date / Time Penicillins Allergy Intermediate Swelling Verified 07/02/20 12:18 albuterol Allergy Mild palpatation Verified 07/02/20 12:18 s Review of Systems Review of Systems: Narrative: CONSTITUTIONAL: Denies malaise, chills, sweats, or fever. EYES: Denies visual changes, redness, or discharge. ENT: Denies rhinorrhea, congestion, sinus pain, and sore throat. Reports right ear pain, denies drainage CARDIOVASCULAR: Denies chest pain, palpitations, or edema. RESPIRATORY: Denies cough or dyspnea. GASTROINTESTINAL: Denies abdominal pain, nausea, vomiting, diarrhea SKIN: Denies rash or itching. MUSCULOSKELETAL: Denies myalgia. NEUROLOGIC: Denies headache. All systems reviewed & are unremarkable except as noted in HPI and below PMFSH Past Medical History Medical History (Updated 07/02/20 @ 12:32 by Katelynn Gerber NP) Hypertension Hypothyroidism, unspecified Insomnia, unspecified Metabolic syndrome Mixed hyperlipidemia Osteoarthritis Surgical History Surgical History (Updated 03/06/20 @ 15:06 by Ben Cohen Jr., MD) Status post THR (total hip replacement) c/o Dr. Eliud Adams on February 15, 2020 Family History Family History Mother Hypertension Carcinoma of colon Other Family history of arthritis Social History Social History Social History: Patient is listed as a Full Code. Her PCP is Dr. Cohen. Smoking status: Never smoker Second hand tobacco smoke exposure: No Additional smoking assessment comments: DENIES ANY FORM OF TOBACCO USE Alcohol intake: current Drinks per week: 1 Substance use: never Substance use type: does not use Gender identity (if verbalized by the patient): Female Spiritual care concerns: No Comments At time of signature, agree with nursing past medical, surgical, social and family history. There is no relevant family history pertinent to the presenting complaint Exam Narrative: Exam Narrative: GENERAL: Well-appearing, well-nourished, and in no acute distress. HEAD: Normocephalic EYES: PERRLA, conjunctivae clear ENT: Nares clear. Mucous membranes moist. Left TM pearly davis with sharp light reflex, right TM not visibly intact, purulent discharge noted -wax noted and removed with dislodged tympanostomy tube in the wax; no tragal tenderness. NECK: Supple. No lymphadenopathy CHEST: No respiratory distress, speaks in full sentences. HEART: Regular rate and rhythm. No murmur heard. SKIN: Warm, dry, no rash. NEURO: Alert and oriented x3. PSYCH: Normal mood and affect Course Course Emergency Course: Patient is aware of diagnosis, understands and agrees to treatment plan. Anticipatory guidance given. Patient agrees to follow-up as directed and
== END 2020-07-02 12:40 | disposition home or self-care (01) ==
PROVIDERS: Emergency Provider Nurse Practitioner; PCP Internal Medicine
DX: H66.3X1 Other chronic suppurative otitis media, right ear (principal); H61.21 Impacted cerumen, right ear; I10 Essential (primary) hypertension; E03.9 Hypothyroidism, unspecified; E78.2 Mixed hyperlipidemia; M19.90 Unspecified osteoarthritis, unspecified site; Z79.82 Long term (current) use of aspirin
CPT/HCPCS: 69210; 99213; G0463

== ENCOUNTER 2020-08-22 11:13 | Outpatient (CLI) | payer MEDICARE, OTHER, SELFPAY | END 2020-08-22 11:14 | disposition home or self-care (01) | LOC: ANHCOVIDVC 11:14 | PROVIDERS: PCP Internal Medicine | DX: Z23 Encounter for immunization (principal) | CPT/HCPCS: 0001A; 91300 ==

== ENCOUNTER 2020-09-12 10:53 | Outpatient (CLI) | payer MEDICARE, OTHER, SELFPAY | END 2020-09-12 10:54 | disposition home or self-care (01) | LOC: ANHCOVIDVC 10:53 | PROVIDERS: PCP Internal Medicine | DX: Z23 Encounter for immunization (principal) | CPT/HCPCS: 0002A; 91300 ==

== ENCOUNTER → 2021-07-29 08:03 | Outpatient (CLI) | payer MEDICARE, OTHER, SELFPAY ==
[2021-07-29 12:55] LABS: Influenza A QL RT-PCR Negative (Negative); Influenza B QL RT-PCR Negative (Negative); SARS-CoV-2 RNA PCR Negative
== END ==
PROVIDERS: PCP Internal Medicine; Visit Provider Nurse Practitioner
DX: R68.89 Other general symptoms and signs (principal); Z20.822 Contact with and (suspected) exposure to COVID-19
CPT/HCPCS: 87502; C9803; U0003; U0005

== ENCOUNTER 2021-11-20 12:38 | Outpatient (CLI) | payer MEDICARE, OTHER, SELFPAY ==
--- NOTE | ~2021-11-20 | DEXA_ITS ---
Bone Density Report Name: JOSE ALFREDO CROSS Age: 76 Sex: Female Ethnicity: White Date of : 1945 Indication: postmenopausal; screening for osteoporosis; height loss; hysterectomy; Referring Provider: NOEMÍ DANIEL Study: Bone densitometry was performed. Exam Date: November 20, 2021 Accession number: [id number] Bone Density: Region BMD T-score Z-score Classification Femoral Neck (Left) 0.669 -1.6 0.6 Osteopenia Total Hip (Left) 0.944 0.0 1.9 Normal World Health Organization criteria for BMD impression classify patients as: Normal (T-score at or above -1.0), Osteopenia (T-score between -1.0 and -2.5), or Osteoporosis (T-score at or below -2.5). 10-year Fracture Risk(1): Major Osteoporotic Fracture 12% Hip Fracture 2.8% Reported Risk Factors: [place] (), Neck BMD=0.669, BMI=32.4 (1) FRAX(R) Version 3.08. Fracture probability calculated for an untreated patient. Fracture probability may be lower if the patient has received treatment. Clinical Information Provided by Patient: Has the following medical conditions: Hysterectomy Patient maximum height was 67.5 Menopause Age: 44 No regular weight bearing exercise Drinks caffeinated beverages Onset of menses at age 10 Number of children 3 Impression: The patient has low bone mass, based on the Left Femoral Neck T-score. The patient has an estimated ten-year risk of hip fracture of 2.8% and an estimated ten-year risk of major fracture of 12%, based on the WHO FRAX algorithm. Discussion: BONE DENSITY IS LOW AT ONE OR MORE SKELETAL SITES. This patient's lowest T-score is low at one or more skeletal sites. It meets the World Health Organization's (WHO) criteria for ?low bone mass? (T-score between -1.0 and -2.5). The patient's 10-year risk of fracture as calculated by FRAX is less than the threshold where pharmacological therapy is recommended by the National Osteoporosis Foundation (NOF). However, all treatment decisions require clinical judgment and consideration of individual patient factors, including patient preferences, comorbidities, previous drug use, risk factors not captured in the FRAX model (e.g., frailty, falls, vitamin D deficiency, increased bone turnover, interval significant decline in bone density) and possible under or overestimation of fracture risk by FRAX. The patient should follow a healthful lifestyle (good nutrition with adequate calcium and vitamin D, and appropriate weight-bearing exercise). Follow-Up: Consider repeating this study in 2 to 3 years to reassess this patient's status, or sooner if there is some new clinical indication. Reported by: PATIENCE on 11/20/2021 1:26:00 PM. Reviewed, dictated and finalized at location A. SHANIKA
--- NOTE | ~2021-11-20 | MM_ITS ---
EXAMINATION: MM screening lexa BI w [place] HISTORY: Screening mammogram TECHNIQUE: Craniocaudal and mediolateral oblique 3-D tomosynthesis images were obtained and synthetic 2-D images were generated. CAD analysis was submitted and interpreted. COMPARISON: No prior mammogram is available for comparison at this institution. BREAST PARENCHYMAL COMPOSITION: There are scattered areas of fibroglandular density. FINDINGS: Right breast: Approximately 1.5 cm irregular spiculated mass is noted in the posterior outer mid righ t breast, almost certainly a breast malignancy. Diagnostic right mammogram and right breast ultrasoun d examination are recommended. Left breast: There is no evidence of suspicious mass, calcification, or architectural distortion to s uggest malignancy. There has been no suspicious interval change. IMPRESSION: 1. Approximately 1.5 cm irregular spiculated mass in the posterior outer mid right breast, almost cer tainly a breast malignancy. 2. Diagnostic right mammogram and right breast ultrasound examination are recommended BI-RADS Category 0: Incomplete: Needs additional imaging evaluation. Reviewed, dictated and finalized at location A. IMPRESSION: 1. Approximately 1.5 cm irregular spiculated mass in the posterior outer mid ri ght breast, almost certainly a breast malignancy. 2. Diagnostic right mammogram and right breast ultrasound examination are recom mended BI-RADS Category 0: Incomplete: Needs additional imaging evaluation.
== END 2021-11-20 12:39 | disposition home or self-care (01) ==
LOC: ANHIMG 12:40
PROVIDERS: PCP Internal Medicine; Visit Provider Nurse Practitioner
DX: Z12.31 Encounter for screening mammogram for malignant neoplasm of breast (principal); Z78.0 Asymptomatic menopausal state; R92.8 Other abnormal and inconclusive findings on diagnostic imaging of breast; M85.852 Other specified disorders of bone density and structure, left thigh
CPT/HCPCS: 77063; 77067; 77080

== ENCOUNTER 2021-12-30 13:40 | Outpatient (CLI) | payer MEDICARE, OTHER, SELFPAY ==
--- NOTE | ~2021-12-30 | MMUS_ITS ---
EXAMINATION: MM diagnostic lexa RT w [place], US breast RT limited HISTORY: Right breast mass on screening mammogram TECHNIQUE: Additional 3-D tomosynthesis images of the right breast were performed and synthetic 2-D i mages were generated. CAD analysis was submitted and interpreted. High resolution limited right breas t ultrasound was performed. COMPARISON: 11/20/2021, 05/05/2014, 04/25/2014 BREAST PARENCHYMAL COMPOSITION: There are scattered areas of fibroglandular density. FINDINGS: MAMMOGRAPHIC FINDINGS: There is an irregular, high density, spiculated mass in the middle third of the upper outer quadrant of the breast at the 10:00 location 8 cm from the nipple. ULTRASOUND: There is a 1.3 x 1.5 cm irregular, not parallel, hypoechoic mass, with posterior acoustic shadowing, angular margins, and peripheral vascularity at the 9:00 location 6 cm from the nipple. IMPRESSION: 1. Suspicious right breast mass. 2. Ultrasound-guided biopsy is recommended. BI-RADS category 5, highly suggestive of malignancy. Reviewed, dictated and finalized at location A. IMPRESSION: 1. Suspicious right breast mass. 2. Ultrasound-guided biopsy is recommended. BI-RADS category 5, highly suggestive of malignancy.
== END 2021-12-30 13:41 | disposition home or self-care (01) ==
LOC: ANHIMG 13:41
PROVIDERS: PCP Internal Medicine; Visit Provider Nurse Practitioner
DX: R92.8 Other abnormal and inconclusive findings on diagnostic imaging of breast (principal)
CPT/HCPCS: 76642; 77061; 77065; G0279

== ENCOUNTER 2022-02-10 08:49 | Outpatient (CLI) | payer MEDICARE, OTHER, SELFPAY ==
--- NOTE | ~2022-02-10 | MMUS_ITS ---
US breast biopsy RT w image, MM post biopsy invasive RT 02/10/2022 10:04 (accession [id number]), 02/10/2022 10:05 (accession [id number]) EXAMINATION: US GUIDED NEEDLE BIOPSY WITH VACUUM ASSISTANCE DATE: 02/10/2022 10:11 CDT INDICATION: Right breast mass seen on recent examination. Ultrasound-guided core biopsy is requested to evaluate for malignancy. TECHNIQUE AND FINDINGS: The risks and potential benefits of the procedure were discussed with the patient, and written inform ed consent was obtained. After sterile preparation of the right breast, 1% lidocaine was utilized fo r local anesthesia. 1% lidocaine with epinephrine was used for deep anesthesia. A 10G vacuum-assisted biopsy gun needle was advanced through to the outer edge of the region of inter est from a superior lateral approach utilizing sonographic guidance. A total of 5 tissue core sample s were obtained through the lesion. An Inrad tissue marker clip was then placed at the biopsy site. Hemostasis was achieved. The patient tolerated procedure well and there was no evidence of immediate complication. The patien t was given verbal instructions partly is from the department. Right breast mammograms to document t issue marker clip placement. The tissue samples were submitted to surgical pathology for histologic a nalysis. IMPRESSION: 1. Successful ultrasound-guided vacuum-assisted biopsy of right breast mass with tissue marker place ment. Please refer to pathology report for histologic analysis. Reviewed, dictated and finalized at location A. IMPRESSION: 1. Successful ultrasound-guided vacuum-assisted biopsy of right breast mass wi th tissue marker placement. Please refer to pathology report for histologic vaishali lysis.
== END 2022-02-10 08:50 | disposition home or self-care (01) ==
PROVIDERS: PCP Internal Medicine; Visit Provider Internal Medicine
DX: R92.8 Other abnormal and inconclusive findings on diagnostic imaging of breast (principal)
CPT/HCPCS: 19083; 88305; 88342; A4648

== ENCOUNTER 2022-06-30 10:32 | Outpatient (CLI) | payer MEDICARE, OTHER, SELFPAY ==
[2022-06-30 10:51] LABS: Basophils Percent Auto 0.7 % (0.2-1.2); Eosinophils Absolute Auto 0.1 K/mm3 (0-0.3); Eosinophils Percent Auto 1.6 % (0-4.4); Hematocrit 36.8 % (37.0-47.0); Hemoglobin 12.5 g/dL (12.0-15.0); Immature Granulocyte Absolute 0.01 K/mm3 (0.00-0.031); Immature Granulocyte Percent A 0.2 % (0-0.5); Lymphocytes Absolute Auto 0.56 K/mm3 (0.9-3.2); Lymphocytes Percent Auto 12.8 % (18.3-44.2); Mean Corpuscular Hemoglobin 30.2 pg (26-34); Mean Corpuscular Volume 88.9 fl (80-100); Mean Platelet Volume 8.7 fl (7.4-10.4); Monocytes Absolute Auto 0.4 K/mm3 (0.1-0.6); Monocytes Percent Auto 9.9 % (2.6-8.5); Neutrophils Absolute Auto 3.3 K/mm3 (1.3-6.7); Neutrophils Percent Auto 74.8 % (45.5-73.1); Platelet Count Result 164 k/mm3 (150-375); Red Blood Count 4.14 M/mm3 (4.2-5.4); Red Cell Distribution Width 14.2 % (11.5-14.5); White Blood Count 4.4 K/mm3 (4.5-10.0)
[2022-06-30 10:57] LABS: Blood Urea Nitrogen 21 mg/dL (8-26); Carbon Dioxide 25 mmol/L (22-30); Chloride 105 mmol/L (98-109); Estimated Glomerular Filt Rate > 60; Glucose 93 mg/dL (70-105); Ionized Calcium (POC) 1.13 mmol/L (1.11-1.31); Potassium 3.9 mmol/L (3.5-4.9); Sodium 141 mmol/L (138-146)
[2022-06-30 13:14] LABS: Alanine Aminotransferase 30 U/L (6-35); Albumin Level 4.3 g/dL (3.5-5.1); Alkaline Phosphatase 79 U/L (38-126); Anion Gap 7 mmol/L (8-16); Aspartate Amino Transferase 30 U/L (14-36); Bilirubin,Total 0.4 mg/dL (0.2-1.3); Blood Urea Nitrogen 20 mg/dL (7-17); Calcium 8.9 mg/dL (8.4-10.2); Carbon Dioxide 27 mmol/L (22-30); Chloride 105 mmol/L (98-107); Estimated Glomerular Filt Rate > 60; Glucose 94 mg/dL (65-110); Sodium 139 mmol/L (137-145)
== END 2022-06-30 10:33 | disposition home or self-care (01) ==
PROVIDERS: PCP Internal Medicine; Visit Provider Internal Medicine Hematology & Oncology
DX: C50.911 Malignant neoplasm of unspecified site of right female breast (principal); Z17.0 Estrogen receptor positive status [ER+]
CPT/HCPCS: 36415; 80047; 80053; 85025

== ENCOUNTER 2022-08-20 10:47 | Outpatient (CLI) | payer MEDICARE, OTHER, SELFPAY ==
[2022-08-20 11:05] LABS: Basophils Percent Auto 0.5 % (0.2-1.2); Eosinophils Absolute Auto 0.2 K/mm3 (0-0.3); Eosinophils Percent Auto 2.8 % (0-4.4); Hematocrit 37.2 % (37.0-47.0); Hemoglobin 12.8 g/dL (12.0-15.0); Immature Granulocyte Absolute 0.02 K/mm3 (0.00-0.031); Immature Granulocyte Percent A 0.4 % (0-0.5); Lymphocytes Absolute Auto 0.87 K/mm3 (0.9-3.2); Lymphocytes Percent Auto 15.2 % (18.3-44.2); Mean Corpuscular HGB Conc 34.4 g/dl (32-36); Mean Corpuscular Hemoglobin 30.5 pg (26-34); Mean Corpuscular Volume 88.8 fl (80-100); Monocytes Absolute Auto 0.6 K/mm3 (0.1-0.6); Neutrophils Absolute Auto 4.1 K/mm3 (1.3-6.7); Neutrophils Percent Auto 71.1 % (45.5-73.1); Platelet Count Result 179 k/mm3 (150-375); Red Blood Count 4.19 M/mm3 (4.2-5.4); White Blood Count 5.7 K/mm3 (4.5-10.0)
[2022-08-20 16:31] LABS: Alanine Aminotransferase 34 U/L (6-35); Albumin Level 4.5 g/dL (3.5-5.1); Alkaline Phosphatase 87 U/L (38-126); Anion Gap 7 mmol/L (8-16); Aspartate Amino Transferase 41 U/L (14-36); Bilirubin,Total 0.5 mg/dL (0.2-1.3); Blood Urea Nitrogen 23 mg/dL (7-17); Calcium 9.3 mg/dL (8.4-10.2); Carbon Dioxide 29 mmol/L (22-30); Chloride 97 mmol/L (98-107); Estimated Glomerular Filt Rate 54; Glucose 91 mg/dL (65-110); Potassium 3.9 mmol/L (3.4-5.0); Sodium 133 mmol/L (137-145)
[2022-08-22 04:36] LABS: CA 15-3 25 U/mL (<32)
== END 2022-08-20 10:48 | disposition home or self-care (01) ==
LOC: ANHLAB 10:49
PROVIDERS: PCP Internal Medicine; Visit Provider Internal Medicine Hematology & Oncology
DX: C50.911 Malignant neoplasm of unspecified site of right female breast (principal); Z17.0 Estrogen receptor positive status [ER+]
CPT/HCPCS: 36415; 80053; 85025; 86300

== ENCOUNTER 2022-12-09 09:25 | Outpatient (CLI) | payer MEDICARE, OTHER, SELFPAY ==
[2022-12-09 09:39] LABS: Basophils Absolute Auto 0.1 K/mm3 (0.0-0.1); Basophils Percent Auto 0.9 % (0.2-1.2); Eosinophils Absolute Auto 0.1 K/mm3 (0-0.3); Eosinophils Percent Auto 1.8 % (0-4.4); Hemoglobin 13.2 g/dL (12.0-15.0); Immature Granulocyte Absolute 0.02 K/mm3 (0.00-0.031); Immature Granulocyte Percent A 0.4 % (0-0.5); Lymphocytes Absolute Auto 0.86 K/mm3 (0.9-3.2); Lymphocytes Percent Auto 15.3 % (18.3-44.2); Mean Corpuscular HGB Conc 33.8 g/dl (32-36); Mean Corpuscular Hemoglobin 30.7 pg (26-34); Mean Corpuscular Volume 90.7 fl (80-100); Mean Platelet Volume 9.6 fl (7.4-10.4); Monocytes Absolute Auto 0.5 K/mm3 (0.1-0.6); Monocytes Percent Auto 8.7 % (2.6-8.5); Neutrophils Absolute Auto 4.1 K/mm3 (1.3-6.7); Neutrophils Percent Auto 72.9 % (45.5-73.1); Platelet Count Result 193 k/mm3 (150-375); Red Cell Distribution Width 13.6 % (11.5-14.5); White Blood Count 5.6 K/mm3 (4.5-10.0)
[2022-12-09 11:23] LABS: Alanine Aminotransferase 28 U/L (6-35); Albumin Level 4.6 g/dL (3.5-5.1); Alkaline Phosphatase 81 U/L (38-126); Anion Gap 10 mmol/L (8-16); Aspartate Amino Transferase 31 U/L (14-36); Bilirubin,Total 0.4 mg/dL (0.2-1.3); Blood Urea Nitrogen 34 mg/dL (7-17); Calcium 9.5 mg/dL (8.4-10.2); Carbon Dioxide 29 mmol/L (22-30); Chloride 102 mmol/L (98-107); Estimated Glomerular Filt Rate 43; Glucose 104 mg/dL (65-110); Potassium 3.9 mmol/L (3.4-5.0); Sodium 141 mmol/L (137-145)
[2022-12-14 05:21] LABS: CA 15-3 27 U/mL (<32)
== END 2022-12-09 09:26 | disposition home or self-care (01) ==
LOC: ANHLAB 09:27
PROVIDERS: PCP Family Medicine; Visit Provider Internal Medicine Hematology & Oncology
DX: C50.911 Malignant neoplasm of unspecified site of right female breast (principal); Z17.0 Estrogen receptor positive status [ER+]
CPT/HCPCS: 36415; 80053; 85025; 86300

== ENCOUNTER 2023-03-26 10:30 | Outpatient (CLI) | payer MEDICARE, OTHER, SELFPAY ==
[2023-03-26 10:43] LABS: Basophils Percent Auto 0.7 % (0.2-1.2); Eosinophils Absolute Auto 0.2 K/mm3 (0-0.3); Eosinophils Percent Auto 2.8 % (0-4.4); Hematocrit 38.8 % (37.0-47.0); Hemoglobin 13.2 g/dL (12.0-15.0); Immature Granulocyte Absolute 0.01 K/mm3 (0.00-0.031); Immature Granulocyte Percent A 0.2 % (0-0.5); Lymphocytes Absolute Auto 1.08 K/mm3 (0.9-3.2); Lymphocytes Percent Auto 18.8 % (18.3-44.2); Mean Corpuscular Hemoglobin 30.7 pg (26-34); Mean Corpuscular Volume 90.2 fl (80-100); Mean Platelet Volume 9.8 fl (7.4-10.4); Monocytes Absolute Auto 0.5 K/mm3 (0.1-0.6); Monocytes Percent Auto 8.5 % (2.6-8.5); Platelet Count Result 187 k/mm3 (150-375); Red Cell Distribution Width 13.4 % (11.5-14.5); White Blood Count 5.8 K/mm3 (4.5-10.0)
[2023-03-26 12:38] LABS: Alanine Aminotransferase 26 U/L (6-35); Albumin Level 4.6 g/dL (3.5-5.1); Alkaline Phosphatase 94 U/L (38-126); Anion Gap 10 mmol/L (8-16); Aspartate Amino Transferase 28 U/L (14-36); Bilirubin,Total 0.5 mg/dL (0.2-1.3); Blood Urea Nitrogen 26 mg/dL (7-17); Calcium 9.6 mg/dL (8.4-10.2); Carbon Dioxide 28 mmol/L (22-30); Chloride 102 mmol/L (98-107); Estimated Glomerular Filt Rate 48; Glucose 96 mg/dL (65-110); Potassium 3.7 mmol/L (3.4-5.0); Sodium 140 mmol/L (137-145)
[2023-03-30 09:27] LABS: CA 15-3 27 U/mL (<32)
== END 2023-03-26 10:31 | disposition home or self-care (01) ==
LOC: ANHLAB 10:33
PROVIDERS: PCP Family Medicine; Visit Provider Internal Medicine Hematology & Oncology
DX: C50.911 Malignant neoplasm of unspecified site of right female breast (principal); Z17.0 Estrogen receptor positive status [ER+]
CPT/HCPCS: 36415; 80053; 85025; 86300

== ENCOUNTER → 2023-05-01 10:17 | Outpatient (CLI) | payer MEDICARE, OTHER, SELFPAY ==
--- NOTE | ~2023-05-01 | XR_ITS ---
EXAMINATION: XR lumbar spine 2-3V DATE: 05/01/2023 10:37 INDICATION: Left hip and low back TECHNIQUE: Anteroposterior and lateral views of the lumbar spine, and cone-down lateral view of the l umbosacral junction were obtained. COMPARISON: 01/31/2019 FINDINGS: There are changes of posterior fusion and laminectomy from L3 through L5. There are 15 mm o f stable anterolisthesis of L4 on L5. Vertebral body alignment is otherwise maintained. There is ricky re loss of intervertebral disc space height at L3-4, L4-5, and L5-S1. There is no fracture. There are changes of right total hip arthroplasty. There is severe facet joint osteoarthritis at L2-3. IMPRESSION: 1. Surgical changes and severe lumbar spondylosis without acute findings or significant interval gonzales ge. Reviewed, dictated and finalized at location B. 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 Surgical changes and severe lumbar spondylosis without acute findings or sig nificant interval change.
--- NOTE | ~2023-05-01 | XR_ITS ---
AP and lateral views of the left hip Clinical history: Pain COMPARISON: 12/25/2016 Findings: No acute fracture or dislocation is seen. Minimal degenerative change of the left hip joint present. Soft tissues are unremarkable. Impression: Minimal degenerative change of the left hip joint. Reviewed, dictated and finalized at location . [employer]RER Impression: Minimal degenerative change of the left hip joint.
== END ==
PROVIDERS: PCP Family Medicine; Visit Provider Nurse Practitioner Family
DX: M25.552 Pain in left hip (principal); M47.896 Other spondylosis, lumbar region
CPT/HCPCS: 72100; 73502

== ENCOUNTER 2023-07-22 11:28 | Outpatient (CLI) | payer MEDICARE, OTHER, SELFPAY ==
[2023-07-22 11:46] LABS: Basophils Percent Auto 0.6 % (0.2-1.2); Eosinophils Absolute Auto 0.1 K/mm3 (0-0.3); Eosinophils Percent Auto 1.7 % (0-4.4); Hematocrit 34.2 % (37.0-47.0); Hemoglobin 11.8 g/dL (12.0-15.0); Immature Granulocyte Absolute 0.01 K/mm3 (0.00-0.031); Immature Granulocyte Percent A 0.2 % (0-0.5); Lymphocytes Absolute Auto 1.04 K/mm3 (0.9-3.2); Lymphocytes Percent Auto 20.2 % (18.3-44.2); Mean Corpuscular HGB Conc 34.5 g/dl (32-36); Mean Corpuscular Hemoglobin 30.6 pg (26-34); Mean Corpuscular Volume 88.8 fl (80-100); Mean Platelet Volume 9.4 fl (7.4-10.4); Monocytes Absolute Auto 0.5 K/mm3 (0.1-0.6); Monocytes Percent Auto 9.5 % (2.6-8.5); Neutrophils Absolute Auto 3.5 K/mm3 (1.3-6.7); Neutrophils Percent Auto 67.8 % (45.5-73.1); Platelet Count Result 153 k/mm3 (150-375); Red Blood Count 3.85 M/mm3 (4.2-5.4); White Blood Count 5.2 K/mm3 (4.5-10.0)
[2023-07-22 13:07] LABS: Alanine Aminotransferase 24 U/L (6-35); Albumin Level 4.4 g/dL (3.5-5.1); Alkaline Phosphatase 95 U/L (38-126); Anion Gap 8 mmol/L (8-16); Aspartate Amino Transferase 31 U/L (14-36); Bilirubin,Total 0.5 mg/dL (0.2-1.3); Blood Urea Nitrogen 24 mg/dL (7-17); Calcium 9.5 mg/dL (8.4-10.2); Carbon Dioxide 29 mmol/L (22-30); Chloride 101 mmol/L (98-107); Estimated Glomerular Filt Rate 53; Glucose 97 mg/dL (65-110); Potassium 3.6 mmol/L (3.4-5.0); Sodium 138 mmol/L (137-145)
[2023-07-25 07:45] LABS: CA 15-3 25 U/mL (<32)
== END 2023-07-22 11:29 | disposition home or self-care (01) ==
LOC: ANHLAB 11:31
PROVIDERS: PCP Family Medicine; Visit Provider Internal Medicine Hematology & Oncology
DX: C50.911 Malignant neoplasm of unspecified site of right female breast (principal); Z17.0 Estrogen receptor positive status [ER+]
CPT/HCPCS: 36415; 80053; 85025; 86300

== ENCOUNTER 2023-11-23 08:16 | Outpatient (CLI) | payer MEDICARE, OTHER, SELFPAY ==
--- NOTE | ~2023-11-23 | DEXA_ITS ---
Bone Density Report Name: JOSE ALFREDO CROSS Age: 78 Sex: Female Ethnicity: White Date of : 1945 Indication: postmenopausal; screening for osteoporosis; height loss; cancer; hysterectomy; Referring Provider: JENN ZHONG Study: Bone densitometry was performed. Exam Date: November 23, 2023 Accession number: [id number] Bone Density: Region BMD T-score Z-score Classification AP Spine (L1, L2) 1.391 3.7 6.2 Normal Femoral Neck (Left) 0.685 -1.5 0.8 Osteopenia Total Hip (Left) 0.938 0.0 2.0 Normal World Health Organization criteria for BMD impression classify patients as: Normal (T-score at or above -1.0), Osteopenia (T-score between -1.0 and -2.5), or Osteoporosis (T-score at or below -2.5). 10-year Fracture Risk(1): Major Osteoporotic Fracture 12% Hip Fracture 2.7% Reported Risk Factors: [place] (), Neck BMD=0.685, BMI=32.1 (1) FRAX(R) Version 3.08. Fracture probability calculated for an untreated patient. Fracture probability may be lower if the patient has received treatment. Clinical Information Provided by Patient: Has used the following medications: Vitamin D, Anastrozole Has the following medical conditions: Cancer, Hysterectomy, breast cancer 2021 Patient maximum height was 67 Menopause Age: 44 Does not regularly consume dairy products Drinks caffeinated beverages Onset of menses at age 10 Number of children 2 Impression: The patient has low bone mass, based on the Left Femoral Neck T-score. The patient has an estimated ten-year risk of hip fracture of 2.7% and an estimated ten-year risk of major fracture of 12%, based on the WHO FRAX algorithm. Discussion: BONE DENSITY IS LOW AT ONE OR MORE SKELETAL SITES. This patient's lowest T-score is low at one or more skeletal sites. It meets the World Health Organization's (WHO) criteria for ?low bone mass? (T-score between -1.0 and -2.5). The patient's 10-year risk of fracture as calculated by FRAX is less than the threshold where pharmacological therapy is recommended by the National Osteoporosis Foundation (NOF). However, all treatment decisions require clinical judgment and consideration of individual patient factors, including patient preferences, comorbidities, previous drug use, risk factors not captured in the FRAX model (e.g., frailty, falls, vitamin D deficiency, increased bone turnover, interval significant decline in bone density) and possible under or overestimation of fracture risk by FRAX. The patient should follow a healthful lifestyle (good nutrition with adequate calcium and vitamin D, and appropriate weight-bearing exercise). Follow-Up: Consider repeating this study in 2 to 3 years to reassess this patient's status, or sooner if there is some new clinical indication. Reported by: ROSENDO on 11/23/2023 9:14:00 AM.
== END 2023-11-23 08:17 ==
PROVIDERS: PCP Internal Medicine Hematology & Oncology; Visit Provider Family Medicine
DX: M81.0 Age-related osteoporosis without current pathological fracture (principal); M85.89 Other specified disorders of bone density and structure, multiple sites; Z13.820 Encounter for screening for osteoporosis
CPT/HCPCS: 77080

== ENCOUNTER 2023-11-23 09:27 | Outpatient (CLI) | payer MEDICARE, OTHER, SELFPAY ==
[2023-11-23 09:52] LABS: Basophils Percent Auto 0.6 % (0.2-1.2); Eosinophils Absolute Auto 0.1 K/mm3 (0-0.3); Eosinophils Percent Auto 1.9 % (0-4.4); Hematocrit 36.7 % (37.0-47.0); Hemoglobin 12.6 g/dL (12.0-15.0); Immature Granulocyte Absolute 0.01 K/mm3 (0.00-0.031); Immature Granulocyte Percent A 0.2 % (0-0.5); Lymphocytes Absolute Auto 0.91 K/mm3 (0.9-3.2); Lymphocytes Percent Auto 14.4 % (18.3-44.2); Mean Corpuscular HGB Conc 34.3 g/dl (32-36); Mean Corpuscular Volume 90.4 fl (80-100); Mean Platelet Volume 10.2 fl (7.4-10.4); Monocytes Absolute Auto 0.5 K/mm3 (0.1-0.6); Monocytes Percent Auto 7.3 % (2.6-8.5); Neutrophils Absolute Auto 4.8 K/mm3 (1.3-6.7); Neutrophils Percent Auto 75.6 % (45.5-73.1); Platelet Count Result 177 k/mm3 (150-375); Red Blood Count 4.06 M/mm3 (4.2-5.4); Red Cell Distribution Width 14.8 % (11.5-14.5); White Blood Count 6.3 K/mm3 (4.5-10.0)
[2023-11-23 12:07] LABS: Alanine Aminotransferase 22 U/L (6-35); Albumin Level 4.7 g/dL (3.5-5.1); Alkaline Phosphatase 95 U/L (38-126); Anion Gap 10 mmol/L (4-12); Aspartate Amino Transferase 27 U/L (14-36); Bilirubin,Total 0.6 mg/dL (0.2-1.3); Blood Urea Nitrogen 25 mg/dL (7-17); Calcium 9.6 mg/dL (8.4-10.2); Carbon Dioxide 27 mmol/L (22-30); Chloride 103 mmol/L (98-107); Estimated Glomerular Filt Rate 53; Glucose 100 mg/dL (65-110); Potassium 3.5 mmol/L (3.4-5.0); Sodium 140 mmol/L (137-145)
[2023-11-24 11:52] LABS: CA 15-3 27 U/mL (<32)
== END 2023-11-23 09:28 | disposition home or self-care (01) ==
LOC: ANHLAB 09:31
PROVIDERS: PCP Internal Medicine Hematology & Oncology; Visit Provider Internal Medicine Hematology & Oncology
DX: C50.911 Malignant neoplasm of unspecified site of right female breast (principal); Z17.0 Estrogen receptor positive status [ER+]
CPT/HCPCS: 36415; 80053; 85025; 86300

== ENCOUNTER 2024-03-30 11:00 | Outpatient (CLI) | payer MEDICARE, OTHER, SELFPAY ==
[2024-03-30 11:17] LABS: Basophils Percent Auto 0.5 % (0.2-1.2); Eosinophils Absolute Auto 0.1 K/mm3 (0-0.3); Eosinophils Percent Auto 1.1 % (0-4.4); Hematocrit 34.9 % (37.0-47.0); Hemoglobin 11.9 g/dL (12.0-15.0); Immature Granulocyte Absolute 0.01 K/mm3 (0.00-0.031); Immature Granulocyte Percent A 0.2 % (0-0.5); Lymphocytes Absolute Auto 1.11 K/mm3 (0.9-3.2); Lymphocytes Percent Auto 19.4 % (18.3-44.2); Mean Corpuscular HGB Conc 34.1 g/dl (32-36); Mean Corpuscular Hemoglobin 31.1 pg (26-34); Mean Corpuscular Volume 91.1 fl (80-100); Mean Platelet Volume 10.5 fl (7.4-10.4); Monocytes Absolute Auto 0.4 K/mm3 (0.1-0.6); Monocytes Percent Auto 7.2 % (2.6-8.5); Neutrophils Absolute Auto 4.1 K/mm3 (1.3-6.7); Neutrophils Percent Auto 71.6 % (45.5-73.1); Platelet Count Result 154 k/mm3 (150-375); Red Blood Count 3.83 M/mm3 (4.2-5.4); White Blood Count 5.7 K/mm3 (4.5-10.0)
[2024-03-30 12:33] LABS: Alanine Aminotransferase 17 U/L (6-35); Albumin Level 4.2 g/dL (3.5-5.1); Alkaline Phosphatase 72 U/L (38-126); Anion Gap 8 mmol/L (4-12); Aspartate Amino Transferase 27 U/L (14-36); Bilirubin,Total 0.6 mg/dL (0.2-1.3); Blood Urea Nitrogen 16 mg/dL (7-17); Calcium 9.1 mg/dL (8.4-10.2); Carbon Dioxide 26 mmol/L (22-30); Chloride 105 mmol/L (98-107); Estimated Glomerular Filt Rate 53; Glucose 97 mg/dL (65-110); Potassium 4.1 mmol/L (3.4-5.0); Sodium 139 mmol/L (137-145)
[2024-04-01 04:23] LABS: CA 15-3 26 U/mL (<32)
== END 2024-03-30 11:01 | disposition home or self-care (01) ==
PROVIDERS: PCP Family Medicine; Visit Provider Internal Medicine Hematology & Oncology
DX: C50.911 Malignant neoplasm of unspecified site of right female breast (principal); Z17.0 Estrogen receptor positive status [ER+]
CPT/HCPCS: 36415; 80053; 85025; 86300

== ENCOUNTER 2024-07-20 13:29 | Outpatient (CLI) | payer MEDICARE, OTHER, SELFPAY ==
--- NOTE | ~2024-07-20 | MR_ITS ---
EXAMINATION: MR lumbar spine wo/w con DATE: 07/20/2024 14:10 INDICATION: Lumbar radiculopathy TECHNIQUE: Magnetic resonance imaging (MRI) of the lumbar spine was performed without and with 15 mL Multihance intravenous contrast. Sequences included sagittal T2-weighted FSE, sagittal T2-weighted FS FSE, and sagittal and axial T1-weighted FSE. Postcontrast sequences included axial T2-weighted FSE, sagittal T1-weighted FSE, and axial and sagittal T1-weighted FS FSE. COMPARISON: 02/23/2019 FINDINGS: 3 mm retrolisthesis T12 on L1, 3 mm retrolisthesis L1 on L2, 2 mm retrolisthesis L2 on L3, 1 mm anter olisthesis L3 on L4 and 15 mm anterolisthesis L4 on L5. Vertebral body heights are normal. There is L 3-L5 instrumented posterior spinal fusion with metallic magnetic field artifact associated with bilat eral vertical nina and pedicle screw fixations. There is also unchanged solid anterior fusion at L4-L5 . There is fibrovascular degenerative endplate changes at both sides of the T11-T12 disc space. Marro w signal is otherwise normal. Severe disc height loss at T12-L1, moderate severe disc height loss at L5-S1, moderate disc height loss at T11-T12 and L3-L4 and mild disc height loss at L1-L2. The conus m edullaris terminates at T12-L1. There is normal signal in the caudal spinal cord. Paravertebral soft tissues are unremarkable. No abnormally enhancing lesions identified. The following disc levels are s pecifically discussed: T11-T12: Disc is bulging with annular fissure and right subarticular and foraminal zone disc extrusio n with disc material extending up to 5 mm cephalad and caudal to the level of the endplates. There is moderate left and severe right facet osteoarthritis. There is mild to moderate left and severe right neural foraminal stenosis. There is mild central canal stenosis. T12-L1: Disc is bulging with annular fissure and additional central disc extrusion with disc material extending up to 6 mm caudal to the level of the superior endplate of L1. There is hypertrophy of the ligamentum flavum. There is moderate to severe bilateral facet joint osteoarthritis. There is severe bilateral neural foraminal stenosis. There is moderate central canal stenosis. L1-L2: Disc is bulging with annular fissure. There is hypertrophy of the ligamentum flavum. There is severe bilateral facet joint osteoarthritis. There is severe left and moderate to severe right neura l foraminal stenosis. There is moderate central canal stenosis. L2-L3: Disc is bulging. There is moderate bilateral facet joint osteoarthritis. There is mild to mode rate bilateral neural foraminal stenosis. There is mild central canal stenosis. L3-L4: Disc is bulging with annular fissure. Bilateral posterior spinal fusion procedure with hypertr ophic changes at the bilateral facet joints.. There is mild bilateral neural foraminal stenosis. Ther e is mild central canal stenosis. L4-L5: The disc does not extend beyond the more posterior L5 endplate margin. Bilateral posterior spi nal fusion procedure with hypertrophic change at the bilateral facet joints. There is moderate bilate ral neural foraminal stenosis. There is mild central canal stenosis. L5-S1: Disc is mildly bulging. There is severe bilateral facet joint osteoarthritis. There is mild bi lateral neural foraminal stenosis. There is no central canal stenosis. IMPRESSION: 1. Minimal progression of severe lumbar spondylosis. 2. Chronic instrumented L3-L5 posterior spinal fusion along with anterior fusion with 15 mm of canelo listhesis of L4 on L5. Reviewed, dictated and finalized at location B. TH CLINICIAN IMPRESSION: 1. Minimal progression of severe lumbar spondylosis. 2. Chronic instrumented L3-L5 posterior spinal fusion along with anterior fusio n with 15 mm of anterolisthesis of L4 on L5.
== END 2024-07-20 13:30 | disposition home or self-care (01) ==
LOC: MICIMG 13:29
PROVIDERS: PCP Family Medicine; Visit Provider Physical Medicine & Rehabilitation Pain Medicine
DX: M43.06 Spondylolysis, lumbar region (principal); Z98.1 Arthrodesis status
CPT/HCPCS: 72158; A9577

== ENCOUNTER 2024-08-04 10:01 | Outpatient (CLI) | payer MEDICARE, OTHER, SELFPAY ==
[2024-08-04 10:13] LABS: Basophils Percent Auto 0.5 % (0.2-1.2); Eosinophils Absolute Auto 0.1 K/mm3 (0-0.3); Hematocrit 35.7 % (37.0-47.0); Immature Granulocyte Absolute 0.02 K/mm3 (0.00-0.031); Immature Granulocyte Percent A 0.3 % (0-0.5); Lymphocytes Absolute Auto 1.15 K/mm3 (0.9-3.2); Lymphocytes Percent Auto 18.5 % (18.3-44.2); Mean Corpuscular HGB Conc 33.6 g/dl (32-36); Mean Corpuscular Hemoglobin 30.8 pg (26-34); Mean Corpuscular Volume 91.5 fl (80-100); Mean Platelet Volume 10.3 fl (7.4-10.4); Monocytes Absolute Auto 0.4 K/mm3 (0.1-0.6); Monocytes Percent Auto 6.4 % (2.6-8.5); Neutrophils Absolute Auto 4.6 K/mm3 (1.3-6.7); Neutrophils Percent Auto 73.3 % (45.5-73.1); Platelet Count Result 155 k/mm3 (150-375); Red Cell Distribution Width 14.7 % (11.5-14.5); White Blood Count 6.2 K/mm3 (4.5-10.0)
--- OUTSIDE RECORDS SUMMARY | 2024-08-04 10:26 | XMS_ITS | Clinical Summary ---
Author Organization [facility] Address [facility] [place] [address] Care Team Providers Care New Grad Rn Name Role Phone Ben Cohen MD Primary Care Provider Unava ilable Social History Tobacco Use Types Packs/Day Years Used Date Smoking Tobacco: Never Assessed Comments Unknown Sex and Gender Information Value Date Recorded Sex Assigned at Not on file Legal Sex Female 7:19 PM CDT Gender Identity Not on file Sexual Orientation Not on file Plan of Treatment Health Maintenance Due Date Last Done Comments DTaP, Tdap and Td Vaccines ( 1 - Tdap) 1964 Zoster Vaccines (1 of 2) 1994 Annual Medicare Wellness Visit 2009 RSV Immunization or 60+ Years (1 - 1-dose 75+ series) 2019 Pneumococcal Vaccine: 65+ Ye ars (2 of 2 - PPSV23 or PCV20) 08/01/2020 08/01/2019 COVID-19 Vaccine ( - 2023-2 5 season) 2024 Influenza Adult (#1) 2024 03/22/2015 Dexa Scan (General) Completed 04/19/2020 Meningococcal B Vaccine Aged Out No l onger eligible based on patient's age to complete this topic Meningococcal Vaccine Aged Out No steven west eligible based on patient's age to complete this topic RSV Immunizations Under 20 Months Aged Out No longer eligible based on patient's age to complete this topic Procedures Procedure Name Priority Date/Time Associated Diagnosis Comments BONE DENSITY/DEXA Routine 04/19/2020 2:2 2 PM CDT Menopause from Last 3 Months or Most Recently Relevant to Health Maintenance Results * BONE DENSITY/DEXA (04/19/2020 2:22 PM CDT) Anatomical Region Laterality Modality Bone Bone Density 04/19/2020 3:22 PM CDT Impressions 04/19/2020 3:23 PM CDT FINDINGS AND IMPRESSION: Examination performed on a Outline App Discovery SL .: RADIUS AND ULNA 33%: 1. BMD: 0.536 g/cm2. 2. T score: -2.6. Previous T score: No previous available. 3. WHO classification: Mild osteoporosis. 4. Fracture risk: Moderate. LEFT FEMORAL NECK: 1. BMD: 0.697 g/cm2. 2. T score: -1.4. Previous T score: No previous available. 3. WHO classification: Mild osteopenia. 4. Fracture risk: Very low. Recommendations: Recommend therapy and follow up in one year to assess response. Voice recognition software utilized. Interpreted By: Brown Dietz, 04/19/2020 3:22 PM Narrative 04/19/2020 3:23 PM CDT Examination: BONE DENSITY/DEXA Exam date/time: 04/19/2020 2:11 PM Comparison studies:No previous available. Clinical history: MENOPAUSE . Screening Procedure Note Brown Dietz MD - 04/19/2020 Examination: BONE DENSITY/DEXA Exam date/time: 04/19/2020 2:11 PM Comparison studies:No previous available. Clinical history: MENOPAUSE . Screening FINDINGS AND IMPRESSION: Examination performed on a Outline App Discovery SL .: RADIUS AND ULNA 33%: 1. BMD: 0.536 g/cm2. 2. T score: -2.6. Previous T score: No previous available. 3. WHO classification: Mild osteoporosis. 4. Fracture risk: Moderate. LEFT FEMORAL NECK: 1. BMD: 0.697 g/cm2. 2. T score: -1.4. Previous T score: No previous available. 3. WHO classification: Mild osteopenia. 4. Fracture risk: Very low. Recommendations: Recommend therapy and follow up in one year to assess response. Voice recognition software utilized. Interpreted By: Brown Dietz, 04/19/2020 3:22 PM Eliud BATESA Final Result from Last 3 Months or Most Recently Relevant to Health Maintenance Insurance [facility] MEDICARE [place] MEDICARE Care Teams New Grad Rn Relationship Specialty Start Date End Date Ben Cohen MD PCP - General INTERNAL MEDICINE 04/18/20
--- OUTSIDE RECORDS SUMMARY | 2024-08-04 10:26 | XMS_ITS | Clinical Summary ---
Author Organization [facility] Address [address] [place] [id number] Phone Care Team Providers Care Visualizer Name Role Phone Ben Cohen MD Primary Care Provider Allergies Active Allergy Reactions Criticality Noted Date Comments Albuterol 03/21/2022 Other reaction(s): Other (See Comments) tachycardia Penicillins Rash Low 02/09/2020 Medications Medication Sig Dispensed Refills Start Date End Date Status hydroCHLOROthiazid e (HYDRODIURIL) 25 MG tablet Take 25 mg by mouth 1 (one) time each day 11/18/2019 Active metoprolol tartrate (LOPRESSOR) 100 MG tablet Take 100 mg by mouth 1 (one) time each day 12/06/2019 Active pregabalin (LYRICA) 75 MG capsule Take 75 mg by mouth 2 (two) times a day 12/21/2019 Active rosuvastatin (CRESTOR) 20 MG tablet rosuvastatin 20 mg tablet Active zolpidem (AMBIEN) 10 MG tablet TAKE 1 TABLET BY MOUTH ONCE DAILY IN THE EVENING NEEDED FOR SLEEP 01/09/2020 Active traMADol (ULTRAM) 50 MG tablet 11/15/2021 Active potassium chloride (KLOR-CON) 10 MEQ CR tablet Take 10 mEq by mouth 1 (one) time each day 11/06/2021 Active Vitamin D, Cholecalciferol, 25 MCG (1000 UT) tablet 11/06/2021 Active Euthyrox 88 MCG tablet Take 88 mcg by mouth 1 (one) time each day 11/01/2021 Active aspirin (ST GIOVANNY) 81 MG EC tablet Take 81 mg by mouth in the morning. 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 02/26/2022 Stage 3a chronic kidney disease 02/09/2020 Benign essential hypertension 02/09/2020 Other and unspecified hyperlipidemia 02/09/2020 Lumbago 06/20/2015 Immunizations Name Administration Dates Next Due Influenza (IM) Preservative Free 03/22/2015 Pneumococcal Conjugate 13-Valent 08/01/2019 Family History Medical History Relation Comments Kidney disease Neg Hx Social History Tobacco Use Types Packs/Day Years Used Date Smoking Tobacco: Never Smokeless Tobacco: Never Alcohol Use Standard Drinks/Week Comments Yes 1 (1 standard drink = 0.6 oz pur e alcohol) Sex and Gender Information Value Date Recorded Sex Assigned at Not on file Gender Identity Not on file Sexual Orientation Not on file Last Filed Vital Signs Vital Sign Reading Time Taken Comments Blood Pressure 128/60 05/28/2022 2:02 PM FINISH PATCHER Pulse 84 05/28/2022 2:02 PM FINISH PATCHER Temperature 35.3 C (95.5 F) 05/28/2022 2:02 PM FINISH PATCHER Respiratory Rate - - Oxygen Saturation - - Inhaled Oxygen Concentration - - Weight 82.1 kg (181 lb) 05/28/2022 2:02 PM FINISH PATCHER Height 162.6 cm (5' 4 ) 05/28/2022 2:02 PM FINISH PATCHER Body Mass Index 31.07 05/28/2022 2:02 PM FINISH PATCHER Plan of Treatment Health Maintenance Due Date Last Done Comments Pneumococcal PPSV23/PCV13 65 + Years / High and Highest Risk (2 of 4 - PPSV23 or PCV20) 09/26/2019 08/01/2019 Influenza Vaccine (#1) 2024 03/22/2015 Care Teams Visualizer Relationship Specialty Start Date End Date Ben Cohen MD [address] [place] [address] PCP - General Family Medicine 02/06/20
--- OUTSIDE RECORDS SUMMARY | 2024-08-04 10:26 | XMS_ITS | Clinical Summary ---
Author Organization [facility] Ben Pinedajem Address [address] [place] [address] Care Team Providers Care Continuous Vulcanizing Machine Operator Name Role Phone Kg Ornelas MD Primary Care Provider [phone] Allergies Active Allergy Reactions Criticality Noted Date Comments Albuterol Other (See Comments) 03/21/2022 tachycardia Penicillin Anaphylaxis High 02/26/2022 Medications traMADoL (ULTRAM) 50 mg tablet 02/20/20 22 Active rosuvastatin (CRESTOR) 20 mg tablet Take 20 mg by mouth daily. 02/13/20 22 Active pregabalin (LYRICA) 75 mg Capsule pregabalin 75 mg capsule TAKE 1 CAPSULE BY MOUTH TWICE DAILY 12/21/19 20 Active zolpidem (AMBIEN) 10 mg tablet zolpidem 10 mg tablet TAKE 1 TABLET BY MOUTH IN THE EVENING NEEDED FOR SLEEP FOR 90 DAYS 01/09/20 20 Active hydroCHLOROth iazide 25 mg tablet hydrochlorothiazide 25 mg tablet TAKE 1 TABLET BY MOUTH ONCE DAILY 11/18/19 20 Active aspirin (ECOTRIN EC) 81 mg Tablet, Delayed Release (E.C.) Take 81 mg by mouth daily. Active levothyroxine 88 mcg tablet Take 88 mcg by mouth daily in the morning. Act zandra losartan (COZAAR) 25 mg tablet Take 25 mg by mouth daily. 05/28/20 22 Active tamoxifen (NOLVADEX) 20 mg tablet Take 1 Tablet (20 mg) by mouth daily. 90 Tablet 4 12/09/19 24 Active pregabalin (LYRICA) 150 mg Capsule Take 1 Capsule by mouth 2 times daily. 02/01/20 24 Active Active Problems Patient Care Coordination No te Formatting of this note migh t be different from the original. Primary Care: Kg Ornelas [place]: [place] [address] [facility] [address] [place] [address] Other: Dr. Alice Vo MD Problem Noted Date Diagnosed Date S/P partial mastectomy, right 02/04/2024 Long-term current use of tamoxifen 02/04/2024 History of right breast cancer 01/29/2023 Malignant neoplasm of upper- outer quadrant of right breast in female, estrogen receptor positive 02/26/2022 Encounters Date Type Department Care Team Description 07/19/2024 External Device Data STL ABSTRACTION Provider, Abstract from Last 3 Months Family History Medical History Relation Name Comments Colon Cancer Mother Felicita Whittington Hypertension Mother Felicita Whittington Relation Name Status Comments Mother Felicita Whittington Social History Tobacco Use Types Packs/Day Years Used Date Smoking Tobacco: Never Smokeless Tobacco: Never Tobacco Cessation:Counseling Given: Not Answered Alcohol Use Standard Drinks/Week Comments Yes 2 (1 standard drink = 0.6 oz pur e alcohol) Comments No Sex and Gender Information Value Date Recorded Sex Assigned at Not on file Legal Sex Female 11:09 AM CDT Gender Identity Not on file Sexual Orientation Not on file Last Filed Vital Signs Vital Sign Reading Time Taken Comments Blood Pressure 125/75 04/13/2024 11:47 AM CDT Pulse 71 04/13/2024 11:47 AM CDT Temperature 36.6 C (97.8 F) 04/13/2024 11:47 AM CDT Respiratory Rate 18 04/13/2024 11:47 AM CDT Oxygen Saturation 97% 04/13/2024 11:47 AM CDT Inhaled Oxygen Concentration - - Weight 85.7 kg (189 lb) 04/13/2024 11:47 AM CDT Height 160 cm (5' 3 ) 02/04/2024 12:50 PM CDT Body Mass Index 33.48 02/04/2024 12:50 PM CDT Plan of Treatment Upcoming Encounters Date Type Department Care Team (Late st Contact Info) Description 08/18/2024 1:00 PM WASH DRILLER HELPER Office Visit [facility] [address] [facility] [address] [place] [address] Yonny Markham MD [address] [facility] [address] [place] [address] 02/09/2025 1:00 PM CDT Appointment [facility] Rajeev Hood [address] [place] [address] [place] [address] [facility] [address] [place] [address] 02/09/2025 2:00 PM CDT Office Visit [facility] Rajeev Hood [address] [facility] [address] [place] [address] [place] [address] [facility] [address] [place] [address] Health Maintenance Due Date Last Done Comments DTAP/TDAP/TD VACCINES (1 - Tdap) 1964 Traditional Medicare (ACO) A nnual Wellness Visit 1964 ZOSTER VACCINE (1 of 2) 1994 RSV VACCINE (60+ or ) (1 - 1-dose 75+ series) 2019 PNEUMOCOCCAL VACCINE 65+ YEA RS (2 of 2 - PPSV23) 08/01/2020 08/01/2019 INFLUENZA VACCINE (#1) 2024 03/22/2015 OSTEOPOROSIS SCREENING Completed 2, 04/19/2020, 04/19/2020 Medical Devices Implanted Type Area Hole Digger Device Identifier Shelf Expiration Date Model / Serial / Lot Shrub Grower Clip Surgiclip Ii Titus 9.75in [id number] - [id number] Implanted:Qty: 1 on 04/09/2022 by Alice Vo MD at [facility] Right: Axilla [employer] - COVIDIEN 10/19/2026 [id number] / / [id number] Hemostatic Surgicel 2x3in 1952 - [id number] Implanted:Qty: 1 on 04/09/2022 by Alice Vo MD at [facility] Right: Axilla [employer] 08/19/[id number] / / [id number] Procedures Procedure Name Priority Date/Time Associated Diagnosis Comments DEXA SCAN Routine 11/20/2021 1:27 PM CDT from Last 3 Months or Most Recently Relevant to Health Maintenance Results * DEXA SCAN (11/20/2021 1:27 PM CDT) Anatomical Region Laterality Modality Other Yonny Markham MD HEALTH MAINTENANCE Final Result from Last 3 Months or Most Recently Relevant to Health Maintenance Insurance [place] [address] MEDICARE RAILROAD Member Subscriber Plan / Payer (Ef fective 2009-Present) Name:Susi Easley Relation to Subscriber:Self Name:Susi Easley Payer ID:Not on file Group ID:Not on file Type:Medicare Address: [address] RX [employer] RX Member Subscriber Plan / Payer (Ef fective 2012-Present) Name:Susi Easley Relation to Subscriber:Self Name:Susi Easley Payer ID:Not on file Group ID:[id number] Type:RX Medicare Part D Address: [address] Advance Directives For more information, please contact: [phone] * Full Code (Latest Code Status on File) Date Activated Date Inactivated Comments 04/09/2022 12:09 PM 04/09/2022 6:34 PM Care Teams Continuous Vulcanizing Machine Operator Relationship Specialty Start Date End Date Kg Ornelas MD PCP - General Family Practice 12/18/22
[2024-08-04 12:09] LABS: Anion Gap 11 mmol/L (4-12); Blood Urea Nitrogen 21 mg/dL (7-17); Calcium 9.3 mg/dL (8.4-10.2); Carbon Dioxide 25 mmol/L (22-30); Chloride 102 mmol/L (98-107); Estimated Glomerular Filt Rate 49; Glucose 137 mg/dL (65-110); Sodium 138 mmol/L (137-145)
[2024-08-05 07:33] LABS: CA 15-3 23 U/mL (<32)
== END 2024-08-04 10:02 | disposition home or self-care (01) ==
LOC: ANHLAB 10:03
PROVIDERS: PCP Family Medicine; Visit Provider Internal Medicine Hematology & Oncology
DX: C50.911 Malignant neoplasm of unspecified site of right female breast (principal); Z17.0 Estrogen receptor positive status [ER+]
CPT/HCPCS: 36415; 80048; 85025; 86300

== ENCOUNTER 2024-08-25 10:24 | Outpatient (CLI) | payer MEDICARE, OTHER, SELFPAY ==
--- NOTE | ~2024-08-25 | XR_ITS ---
SINGLE AP VIEW PELVIS Ordering provider: Rajni Corado MD History: . Sacroiliitis, not elsewhere classified . Comparison: May 01, 2023 FINDINGS: BONES: No acute fracture or dislocation. Severe bending of the coccyx. HIP JOINT SPACES: Right hip arthroplasty. Left hip severe osteoarthritic changes. SACROILIAC JOINT SPACES/LUMBAR SPINE: The sacroiliac joint shows mild osteoarthritic changes.. Mild d egenerative changes of the visualized lower lumbar spine. Postoperative changes in the spine. PUBIC SYMPHYSIS: Normal. SOFT TISSUES: Atherosclerotic changes of the aorta. IMPRESSION: No acute osseous abnormality pelvis. Mild osteoarthritic changes of the sacroiliac joints. Reviewed, dictated and finalized at location A. RWRITING ASSISTANT
== END 2024-08-25 10:25 | disposition home or self-care (01) ==
PROVIDERS: PCP Family Medicine; Visit Provider Physical Medicine & Rehabilitation Pain Medicine
DX: M46.1 Sacroiliitis, not elsewhere classified (principal)
CPT/HCPCS: 72190

== ENCOUNTER 2024-10-20 09:32 | Outpatient (CLI) | payer MEDICARE, OTHER, SELFPAY ==
--- NOTE | ~2024-10-20 | CT_ITS ---
Noncontrast CT scan of the lumbar spine CLINICAL HISTORY: Radiculopathy TECHNIQUE: Axial noncontrast imaging of the lumbar spine was performed. Sagittal and coronal reformat marlene images were constructed. Dose reduction technique was used on this scan by utilizing automated ex posure control and iterative reconstruction technique. The dose-length product (DLP) was 770.14 mGy-c m. COMPARISON: MRI dated 07/20/2024 FINDINGS: There is posterior fusion from L3 through L5, bilateral rods and transpedicular screws pres ent, unchanged. There is 16 mm anterolisthesis of L4 over L5, unchanged from prior exam. No acute fra cture or subluxation. Chronic from mild compression deformity inferior endplate of T12, unchanged. At T12-L1, there is severe degenerative disc narrowing. There is large central posterior osteophyte o r disc osteophyte complex, resulting in mild to moderate canal stenosis. There is moderate to advance d bilateral neural foraminal narrowing at this level. At L1-L2, there is minimal disc bulge with moderate facet arthropathy. No central canal stenosis. The re is severe bilateral neural foraminal narrowing. At L2-L3, there is minimal disc bulge with moderate facet arthropathy. No definite central canal sten osis. There is mild to moderate right neural foraminal narrowing. Probable minimal left neural forami nal narrowing. At L3-L4, there is posterior decompression. No trever spinal canal stenosis. There is mild bilateral n eural foraminal narrowing. At L4-L5, there is severe degenerative disc narrowing. There is posterior decompression. Probable mod erate bilateral neural foraminal narrowing. At L5-S1, there is moderate degenerative disc narrowing. There is advanced facet arthropathy, right w orse than left. No canal stenosis. There is posterior decompression. Neural foramina are preserved. Paravertebral soft tissues are unremarkable, aside from expected postoperative change. Impression: Posterior fusion from L3 through L5, with associated posterior decompression as well as, as well as u nderlying 16 mm anterolisthesis of L4 over L5. These findings are stable from prior MRI. Moderate to advanced degenerative spondylosis in the lumbar spine, as detailed above. Large central disc osteophyte complex or osteophyte at the T12-L1 level, with mild to moderate canal stenosis at this level. Reviewed, dictated and finalized at location M. Impression: Posterior fusion from L3 through L5, with associated posterior decompression as well as, as well as underlying 16 mm anterolisthesis of L4 over L5. These find ings are stable from prior MRI. Moderate to advanced degenerative spondylosis in the lumbar spine, as detailed above. Large central disc osteophyte complex or osteophyte at the T12-L1 level, with m ild to moderate canal stenosis at this level.
== END 2024-10-20 09:33 | disposition home or self-care (01) ==
LOC: MICIMG 09:33
PROVIDERS: PCP Family Medicine; Visit Provider Physical Medicine & Rehabilitation Pain Medicine
DX: M47.26 Other spondylosis with radiculopathy, lumbar region (principal); Z98.1 Arthrodesis status
CPT/HCPCS: 72131

== ENCOUNTER 2025-02-01 11:35 | Outpatient (CLI) | payer MEDICARE, OTHER, SELFPAY ==
--- OUTSIDE RECORDS SUMMARY | 2025-02-01 11:38 | XMS_ITS | Clinical Summary ---
Author Organization [facility] Ben Pinedajem Address [address] [place] [address] Care Team Providers Care Control Equipment Electrician Name Role Phone Kg Ornelas MD Primary Care Provider [phone] Allergies Active Allergy Reactions Criticality Noted Date [...] Capsule by mouth 2 times daily. 02/01/20 Active Active Problems Patient Care Coordination No te Formatting of this note migh t be different from the original. Primary Care: Kg Ornelas [place]: [place] [address] [facility] [address] [place] [address] Other: Dr. Alice Vo MD Problem Noted Date Diagnosed Date S/P partial mastectomy, right 02/04/2024 Long-term current use of tamoxifen 02/04/2024 History of right breast cancer 01/29/2023 Malignant neoplasm of upper- outer quadrant of right breast in female, estrogen receptor positive 02/26/2022 Encounters Date Type Department Care Team Description 01/24/2025 External Device Data STL ABSTRACTION Provider, Abstract 01/04/2025 External Device Data STL ABSTRACTION Provider, Abstract 01/03/2025 External Device Data ST[facility] ABSTRACTION Provider, Abstract 12/13/2024 External Device Data STL ABSTRACTION Provider, Abstract 11/22/2024 External Device Data STL ABSTRACTION Provider, Abstract 11/15/2024 External Device Data STL ABSTRACTION Provider, Abstract 11/10/2024 External Device Data STL ABSTRACTION Provider, Abstract 11/09/2024 External Device Data STL ABSTRACTION Provider, Abstract 11/08/2024 External Device Data STL ABSTRACTION Provider, Abstract [...] Sign Reading Time Taken Comments Blood Pressure 97/58 08/18/2024 1:13 PM VOICE OVER ARTIST Pulse 72 08/18/2024 1:13 PM VOICE OVER ARTIST Temperature 36 C (96.8 F) 08/18/2024 1:13 PM VOICE OVER ARTIST Respiratory Rate 15 08/18/2024 1:13 PM VOICE OVER ARTIST Oxygen Saturation 95% 08/18/2024 1:13 PM VOICE OVER ARTIST Inhaled Oxygen Concentration - - Weight 84.7 kg (186 lb 12.8 oz) 08/18/2024 1:13 PM VOICE OVER ARTIST Height 160 cm (5' 3) 02/04/2024 12:50 PM CDT Body Mass Index 33.09 02/04/2024 12:50 PM CDT Plan of Treatment Upcoming Encounters Date Type Department Care Team (Late st Contact Info) Description 02/08/2025 2:15 PM CDT Office Visit [facility] Oncology and Hematology - [place] [address] [facility] [address] [place] [address] Yonny Markham MD [address] [facility] [address] [place] [address] 02/09/2025 1:[address] [facility] [address] [place] [address] [place] [address] [facility] [address] [place] [address] 02/09/2025 2:00 PM CDT Office Visit [facility] Breast Surgery Raje[place] [address] [address] [facility] [address] [place] [address] [place] [address] [facility] [address] [place] [address] Health Maintenance Due Date Last Done Comments DTAP/TDAP/TD VACCINES (1 - Tdap) 1964 Traditional Medicare (ACO) A nnual Wellness Visit 1964 ZOSTER VACCINE (1 of 2) 1994 RSV VACCINE (60+ or ) (1 - 1-dose 75+ series) 2019 PNEUMOCOCCAL VACCINE 50+ YEA RS (2 of 2 - PCV20 or PCV21) 08/01/2020 08/01/2019 INFLUENZA VACCINE (#1) 2025 03/22/2015 OSTEOPOROSIS SCREENING 11/20/2026 2, 04/19/2020, 04/19/2020 Medical Devices Implanted Type Area Assistant Administrator Device Identifier Shelf Expiration Date Model / Serial / Lot Car Designer Clip Surgiclip Ii Titus 9.75in [id number] - [id number] Implanted:Qty: 1 on 04/09/2022 by Alice Vo MD at [facility] [place] Clip Right: Axilla [employer] - COVIDIEN 10/19/2026 [id number] / / [id number] Hemostatic Surgicel 2x3in 1952 - [id number] Implanted:Qty: 1 on 04/09/2022 by Alice Vo MD at [facility] [place] Hemostatic Right: Axilla [employer] 08/19/[id number] / / [id number] Procedures Procedure Name Priority Date/Time Associated Diagnosis Comments DEXA SCAN Routine 11/20/2021 1:27 PM CDT from Last 3 Months or Most Recently Relevant to Health Maintenance Results * DEXA SCAN (11/20/2021 1:27 PM CDT) Yonny Markham MD HEALTH MAINTENANCE Final Result from Last 3 Months or Most Recently Relevant to Health Maintenance Insurance MEDICARE [facility] MEDICARE [place]ROAD Member Subscriber Plan / Payer (Ef fective 2009-Present) Name:Susi Easley Relation to Subscriber:Self Name:Susi Easley Payer ID:Not on file Group ID:Not on file Type:Medicare Address: [address] [employer] Member Subscriber Plan / Payer (Ef fective 2012-Present) Name:Susi Easley Relation to Subscriber:Self Name:Susi Easley Payer ID:Not on file Group ID:[id number] Type:RX Medicare Part D Address: [address] Advance Directives For more information, please contact: [phone] * Full Code (Latest Code Status on File) Date Activated Date Inactivated Comments 04/09/2022 12:09 PM 04/09/2022 6:34 PM Care Teams Control Equipment Electrician Relationship Specialty Start Date End Date Kg Ornelas MD PCP - General Family Practice 12/18/22
--- OUTSIDE RECORDS SUMMARY | 2025-02-01 11:38 | XMS_ITS | Clinical Summary ---
Author Organization [facility] Address [address] [place] [id number] Phone Care Team Providers Care Plumbing Installer Name Role Phone Ben Cohen MD Primary Care Provider Allergies Active Allergy Reactions Criticality Noted Date Comments Albuterol 03/21/2022 Other reaction(s): Other (See Comments) tachycardia Penicillins Rash Low 02/09/2020 Medications hydroCHLOROthia zide (HYDRODIURIL) 25 MG tablet Take 25 mg by mouth 1 (one) time each day 0 Active metoprolol tartrate (LOPRESSOR) 100 MG tablet Take 100 mg by mouth 1 (one) time each day 0 Active pregabalin (LYRICA) 75 MG capsule Take 75 mg by mouth 2 (two) times a day 0 Active rosuvastatin (CRESTOR) 20 MG tablet rosuvastatin 20 mg tablet Active zolpidem (AMBIEN) 10 MG tablet TAKE 1 TABLET BY MOUTH ONCE DAILY IN THE EVENING NEEDED FOR SLEEP 0 Active traMADol (ULTRAM) 50 MG tablet 2 Active potassium chloride (KLOR-CON) 10 MEQ CR tablet Take 10 mEq by mouth 1 (one) time each day 2 Active Vitamin D, Cholecalciferol , 25 MCG (1000 UT) tablet 2 Active Euthyrox 88 MCG tablet Take 88 mcg by mouth 1 (one) time each day 2 Active aspirin (ST GIOVANNY) 81 MG EC tablet Take 81 mg by mouth in the morning. Active losartan (COZAAR) 25 MG tablet Take 1 tablet (25 mg total) by mouth 1 (one) time each day 90 tablet 3 2 Active Active Problems Problem Noted Date Diagnosed Date Malignant neoplasm of upper- outer quadrant of right female breast 02/26/2022 Stage 3a chronic kidney disease 02/09/2020 Benign essential hypertension 02/09/2020 Other and unspecified hyperlipidemia 02/09/2020 Lumbago 06/20/2015 Immunizations Immunization Administration Dates Next Due Influenza (IM) Preservative Free 03/22/2015 Pneumococcal Conjugate 13-Valent 08/01/2019 Family History Medical History Relation Comments Kidney disease Neg Hx Social History Tobacco Use Types Packs/Day Years Used Date Smoking Tobacco: Never Smokeless Tobacco: Never Alcohol Use Standard Drinks/Week Comments Yes 1 (1 standard drink = 0.6 oz pur e alcohol) Comments Unknown Sex and Gender Information Value Date Recorded Sex Assigned at Not on file Legal Sex Female 8:57 AM MDT Gender Identity Not on file Sexual Orientation Not on file Last Filed Vital Signs Vital Sign Reading Time Taken Comments Blood Pressure 128/60 05/28/2022 2:02 PM GEOMETRICIAN Pulse 84 05/28/2022 2:02 PM GEOMETRICIAN Temperature 35.3 C (95.5 F) 05/28/2022 2:02 PM GEOMETRICIAN Respiratory Rate - - Oxygen Saturation - - Inhaled Oxygen Concentration - - Weight 82.1 kg (181 lb) 05/28/2022 2:02 PM GEOMETRICIAN Height 162.6 cm (5' 4) 05/28/2022 2:02 PM GEOMETRICIAN Body Mass Index 31.07 05/28/2022 2:02 PM GEOMETRICIAN Plan of Treatment Health Maintenance Due Date Last Done Comments Pneumococcal PPSV23/PCV13 65 + Years / Low and Medium Risk (2 of 3 - PCV20 or PCV21) 08/01/2020 08/01/2019 Influenza Vaccine (#1) 2025 03/22/2015 Insurance JEANNINE TAPIA [id number] [employer] [facility] [place] [address] Care Teams Plumbing Installer Relationship Specialty Start Date End Date Ben Cohen MD [address] [place] [address] PCP - General Family Medicine 02/06/20
--- OUTSIDE RECORDS SUMMARY | 2025-02-01 11:39 | XMS_ITS | Clinical Summary ---
Author Organization [facility] Address [facility] [place] [address] Care Team Providers Care Fast Food Supervisor Name Role Phone Ben Cohen MD Primary [...] - 1-dose 75+ series) 2019 Pneumococcal Vaccine: 50+ Ye ars (2 of 2 - PPSV23) 08/01/2020 08/01/2019 COVID-19 Vaccine ( - 2023-2 5 season) 2024 Dexa Scan (General) Completed 04/19/2020 Meningococcal B [...] FINDINGS AND IMPRESSION: Examination performed on a [employer] Discovery SL .: RADIUS AND ULNA 33%: [...] FINDINGS AND IMPRESSION: Examination performed on a [employer] Discovery SL .: RADIUS AND ULNA 33%: [...] By: Brown Dietz, 04/19/2020 3:22 PM Eliud Adams MD DEXA Final Result from Last 3 Months or Most Recently Relevant to Health Maintenance Insurance MEDICARE [place] MEDICARE Care Teams Fast Food Supervisor Relationship Specialty Start Date End Date Ben Cohen MD PCP - General INTERNAL MEDICINE 04/18/20
[2025-02-01 11:49] LABS: Hematocrit 33.2 % (37.0-47.0); Hemoglobin 11.1 g/dL (12.0-15.0); Immature Granulocyte Percent A 0.2 % (0-0.5); Lymphocytes Absolute Auto 1.17 K/mm3 (0.9-3.2); Mean Corpuscular HGB Conc 33.4 g/dl (32-36); Mean Corpuscular Hemoglobin 31.1 pg (26-34); Mean Corpuscular Volume 93.0 fl (80-100); Nucleated Red Blood Cells Absolute Auto 0.000 K/mm3 (0.0-0.012); Nucleated Red Blood Cells Perc 0.0 % (0.0-0.2); Platelet Count Result 150 k/mm3 (150-375); Red Blood Count 3.57 M/mm3 (4.2-5.4); White Blood Count 6.2 K/mm3 (4.5-10.0)
[2025-02-01 14:00] LABS: Alanine Aminotransferase 20 U/L (6-35); Albumin Level 4.3 g/dL (3.5-5.1); Alkaline Phosphatase 63 U/L (38-126); Anion Gap 9 mmol/L (4-12); Aspartate Amino Transferase 31 U/L (14-36); Bilirubin,Total 0.4 mg/dL (0.2-1.3); Blood Urea Nitrogen 18 mg/dL (7-17); Calcium 9.3 mg/dL (8.4-10.2); Carbon Dioxide 25 mmol/L (22-30); Chloride 103 mmol/L (98-107); Estimated Glomerular Filt Rate 42; Glucose 99 mg/dL (65-110); Potassium 4.0 mmol/L (3.4-5.0); Sodium 137 mmol/L (137-145); Total Protein 7.3 g/dL (6.3-8.2)
== END 2025-02-01 11:36 | disposition home or self-care (01) ==
LOC: ANHLAB 11:36
PROVIDERS: PCP Family Medicine; Visit Provider Internal Medicine Hematology & Oncology
DX: C50.911 Malignant neoplasm of unspecified site of right female breast (principal); Z17.0 Estrogen receptor positive status [ER+]
CPT/HCPCS: 36415; 80053; 85025; 86300

== ENCOUNTER 2025-03-23 09:37 | Outpatient (CLI) | payer MEDICARE, OTHER, SELFPAY ==
--- NOTE | ~2025-03-23 | XR_ITS ---
EXAMINATION: XR knee RT min 4V, 03/23/2025 10:02 CDT HISTORY: Acute knee pain COMPARISON: No comparisons available. Findings: No acute fracture or malalignment. Severe tricompartmental degenerative changes, small effusion Soft tissues unremarkable. Impression: No acute fracture or malalignment. Reviewed, dictated and finalized at location P. Impression: No acute fracture or malalignment.
--- NOTE | ~2025-03-23 | XR_ITS ---
EXAMINATION: XR knee LT min 4V, 03/23/2025 10:02 CDT HISTORY: Acute knee pain COMPARISON: No comparisons available. Findings: No acute fracture or malalignment. Severe tricompartmental degenerative changes, small effusion Soft tissues unremarkable. Impression: No acute fracture or malalignment. Reviewed, dictated and finalized at location P. Impression: No acute fracture or malalignment.
== END 2025-03-23 09:38 | disposition home or self-care (01) ==
LOC: MICIMG 09:39
PROVIDERS: PCP Family Medicine; Visit Provider Physical Medicine & Rehabilitation Pain Medicine
DX: M17.0 Bilateral primary osteoarthritis of knee (principal); M25.462 Effusion, left knee; M25.461 Effusion, right knee
CPT/HCPCS: 73564